=== PATIENT | female | born 1970 | race Caucasian/White ===

== ENCOUNTER 2023-05-06 13:44 | Outpatient (RCR) | payer OTHER, MEDICAID, SELFPAY | END 2023-05-06 17:00 | disposition home or self-care (01) | LOC: HO.WCC 13:44 | PROVIDERS: PCP Internal Medicine; Visit Provider Physician Assistant | DX: Z09 Encounter for follow-up examination after completed treatment for conditions other than malignant neoplasm (principal); E11.610 Type 2 diabetes mellitus with diabetic neuropathic arthropathy; I10 Essential (primary) hypertension; E11.40 Type 2 diabetes mellitus with diabetic neuropathy, unspecified; Z79.4 Long term (current) use of insulin; Z79.84 Long term (current) use of oral hypoglycemic drugs; Z89.412 Acquired absence of left great toe; Z86.31 Personal history of diabetic foot ulcer | CPT/HCPCS: 99212 ==

== ENCOUNTER 2023-07-18 09:20 | Outpatient (RCR) | payer MEDICAID, OTHER, SELFPAY | END 2023-11-11 10:12 | disposition short-term general hospital (02) | LOC: HO.WCC 09:20 | PROVIDERS: PCP Internal Medicine; Visit Provider Physician Assistant | DX: E11.621 Type 2 diabetes mellitus with foot ulcer (principal); L97.522 Non-pressure chronic ulcer of other part of left foot with fat layer exposed; E11.43 Type 2 diabetes mellitus with diabetic autonomic (poly)neuropathy | CPT/HCPCS: 11042 ==

== ENCOUNTER 2023-09-07 22:44 | Emergency (ER) | payer OTHER, MEDICAID, SELFPAY ==
--- NOTE | 2023-09-07 | ECG_ITS ---
Test Reason : AMS Blood Pressure : / mmHG Vent. Rate : 079 BPM Atrial Rate : 079 BPM P-R Int : 150 ms QRS Dur : 090 ms QT Int : 412 ms P-R-T Axes : 060 027 053 degrees QTc Int : 472 ms Normal sinus rhythm Cannot rule out Anterior infarct , age undetermined Abnormal ECG No previous ECGs available Referred By: Generic ED Physician Electronically Signed By:Efren Delgado
--- NOTE | ~2023-09-07 | XR_ITS ---
EXAMINATION: XR CHEST CLINICAL INFORMATION: Altered mental status. COMPARISON: None available. TECHNIQUE: Frontal view of the chest was obtained. FINDINGS: No significant abnormality is noted involving the heart, lungs, mediastinum, bony thorax or soft tissues. XR/XR chest 1V IMPRESSION: Unremarkable examination.
--- NOTE | ~2023-09-07 | CT_ITS ---
EXAMINATION: CT ABDOMEN AND PELVIS WITH CONTRAST CLINICAL INFORMATION: Abdominal pain. COMPARISON: None available. TECHNIQUE: Multidetector volumetric images were obtained from the superior aspect of the liver through the pubic symphysis following administration 85 mL of Omnipaque 350 intravenous contrast. Sagittal and coronal reformatted images were obtained on the technologist's workstation. Oral contrast: No This CT examination was performed using dose optimization techniques as appropriate, variously including the following: *Automated exposure control *Adjustment of mA and/or kV according to patient size (this includes techniques or standardized protocols for targeted exams where dose is matched to indication/reason for exam; i.e. extremities or head) *Use of iterative reconstruction technique DLP: 546 mGy-cm FINDINGS: LUNG BASES: The visualized lung bases are unremarkable. LIVER, GALLBLADDER, AND BILIARY TREE: The liver is normal in size, shape, and attenuation. No focal hepatic lesion or biliary ductal dilatation is present. There has been a prior cholecystectomy. PANCREAS: Unremarkable. SPLEEN: The spleen measures up to 15 cm ADRENAL GLANDS: Unremarkable. KIDNEYS AND URETERS: The kidneys are normal in size, shape, and attenuation. No hydronephrosis, hydroureter, or calculi seen. No perinephric stranding. BLADDER: Unremarkable. GASTROINTESTINAL TRACT: There is retained stool throughout the colon. A gastric band is noted in place. ABDOMINAL WALL: No significant hernia is appreciated. LYMPH NODES: Normal. VASCULAR: Unremarkable. PELVIC VISCERA: Unremarkable. OSSEOUS STRUCTURES: There is moderate L5-S1 disc degenerative change. CT/CT abdomen pelvis w IV con IMPRESSION: 1. No acute abnormality. 2. Retained stool throughout the colon. 3. Status post cholecystectomy. 4. Gastric band in place. 5. Moderate L5-S1 disc degenerative change. Fleischner guidelines were followed.
[2023-09-07 23:01] VITALS: BP 163/79; BP 167/65; PULSE 85; PULSE 90; RESP 25; TEMP 36.4; O2SAT 100; O2SAT 98; BMI 33.1
[2023-09-07 23:53] LABS: Basophils Percent Auto 0.4 % (0-2); Eosinophils Absolute Auto 0.1 X10*3/uL (0.0-0.4); Eosinophils Percent Auto 1.3 % (0-4); Hematocrit 37.7 % (37.0-47.0); Hemoglobin 13.3 g/dl (12.0-16.0); Imm Gran Abs Auto 0.08 X10*3/uL (0.00-0.03); Imm Gran Pct Auto 0.8 % (0.0-0.4); Lymphocytes Percent Auto 8.9 % (20-40); MANUAL DIFF FLAG NO; Mean Corpuscular HGB Conc 35.3 g/dl (31.0-35.0); Mean Corpuscular Hemoglobin 29.7 pg (27.0-33.0); Mean Corpuscular Volume 84.2 fL (80.0-98.0); Mean Platelet Volume 8.9 fL (9.4-12.3); Monocytes Absolute Auto 1.3 X10*3/uL (0.1-1.2); Neutrophils Absolute Auto 8.1 x10*3/uL (2.0-8.3); Neutrophils Percent Auto 76.6 % (45-73); Platelet Count 272 X10*3/uL (160-400); Red Blood Count 4.48 X10*6/uL (4.20-5.50); Red Cell Distribution Width 12.9 % (11.0-16.0); White Blood Count 10.6 X10*3/uL (4.8-10.8)
[2023-09-08 00:16] LABS: Acetaminophen LAB < 3 mcg/mL (<30); Alanine Aminotransferase 36 U/L (0-31); Albumin Level 3.6 g/dL (3.5-5.0); Alkaline Phosphatase 187 U/L (39-117); Anion Gap 16 (12-20); Aspartate Amino Transferase 39 U/L (5-31); Bilirubin Total 0.9 mg/dL (0.0-1.0); Blood Urea Nitrogen 15 mg/dL (9-16); Calcium 9.3 mg/dL (8.4-10.2); Carbon Dioxide 21 mmol/L (22-29); Chloride 100 mmol/L (96-108); Creatinine Clr Calc Pharmacy 74.2; Estimated Glomerular Filt Rate > 60; Ethanol < 10 mg/dL; Glucose Fasting 87 mg/dL (60-99); Potassium 3.2 mmol/L (3.3-5.1); Sodium 134 mmol/L (135-145); Total Protein 7.6 g/dL (6.5-8.0)
[2023-09-08 00:19] LABS: Troponin-I High Sensitivity < 2.7 ng/L (<3.5-17.0)
[2023-09-08 01:02] LABS: Ammonia 26 umol/L (13-55)
[2023-09-08 01:33] VITALS: BP 116/68; PULSE 81; RESP 23; TEMP 36.9; O2SAT 98
--- NOTE | 2023-09-08 01:37 | ED_ITS ---
HPI - General Adult General Chief complaint: Altered Mental Status Stated complaint: AMS,WEAK Time Seen by Provider: 09/07/23 23:37 Source: patient Mode of arrival: EMS History of Present Illness ED Provider: Dr Acevedo [facility] narrative: 53-year-old female with history of diabetes, brought in by EMS and states that her called the ambulance as for the past couple of days she has been feeling unwell with abdominal discomfort, denies any diarrhea or urinary symptoms and has had some mild nausea. Patient states that she has a history of colitis and this feels similar. She is typically followed up at [facility]. Related Data Allergies Allergy/AdvReac Type Severity Reaction Status Date / Time No Known Allergies Allergy Verified 09/07/23 23:11 Review of Systems 2 Review of Systems: Pertinent positives and negatives as stated in HPI [facility] Past Medical History Source: nursing notes reviewed Social History Social History Advance Directives: No Advance Directives Information Provided: No Do you have a plan to hurt others: No Plan Physical Exam ED Vital Signs: Vital Signs - 24 hr 09/07/23 23:01 09/08/23 01:33 Temperature 97.5 F 98.5 F Pulse Rate 85 81 Respiratory Rate 25 H 23 H Blood Pressure 167/65 H 116/68 Pulse Oximetry 100 98 Oxygen Delivery Method Room Air Room Air BMI result Body Mass Index 33.1 VITAL SIGNS: Reviewed. GENERAL: Elevated BMI, Well developed, well nourished, in no acute distress. HEAD: Normocephalic/atraumatic EYES: PERRLA, EOMI EARS: Ext canals without abnormality NOSE: Nares patent bilateral OROPHARYNX: no oral lesions noted, posterior pharynx clear NECK: Supple, no adenopathy LUNGS: Normal breath sounds. No adventitious sounds or accessory muscle use. SpO2<98> CARDIOVASCULAR: Regular rate and rhythm without noted murmurs ABDOMEN: Soft, mid abdominal discomfort without rebound, non-distended with bowel sounds. MUSCULOSKELETAL: No tenderness, deformities, or effusions noted on gross inspection. EXTREMITIES: No cyanosis, clubbing or edema. SKIN: Inspection of the skin reveals no rashes NEUROLOGIC: Alert and oriented x 4. Strength and sensation to light touch were grossly intact x 4. Medications Administered Discontinued Medications Generic Name Dose Route Start Last Admin Trade Name Freq PRN Reason Stop Dose Admin Sodium Chloride 1,000 mls @ 999 mls/hr 09/08/23 01:45 09/08/23 01:47 Ns IV 09/08/23 02:45 999 mls/hr .Q1H1M AMELIA Administration Iohexol 85 ml 09/08/23 02:50 09/08/23 02:51 Iohexol 350 Mg/Ml 100 Ml Infus..Btl IV 09/08/23 02:51 85 ml ONCE ONE Administration Potassium Chloride 60 meq 09/08/23 02:54 09/08/23 03:03 Potassium Chloride Er 20 Meq Tab.Er.Prt PO 09/08/23 02:55 60 meq ONCE ONE Administration Medical Decision Making Medical Decision Making MDM Narrative: 53-year-old female with history and clinical presentation, DDX: Viral illness, colitis, urinary tract infection, lower clinical suspicion for obstruction. I reviewed hematologic indices which are negative for leukocytosis/anemia/thrombocytopenia. Chemistries indices negative for POOJA but there is noted low potassium which will be repleted with 60 mEq orally and otherwise patient has mildly elevated transaminases with an elevated alkaline phosphatase. As patient typically gets followed up at [facility] there are no laboratory studies to compare with and does not have abdominal discomfort to otherwise suggest a choledocholithiasis or cholangitis. High sensitivity troponin is undetectable. Tylenol and alcohol levels are undetectable. Chest x-ray is negative for infiltrate or venous congestion. CT scan negative for acute intra-abdominal abnormalities and urinalysis negative for UTI or hematuria. My interpretation is that patient may be experiencing a viral illness and she is otherwise discharged home with instructions to continue with symptomatic treatment and follow up with her PCP. Differential Diagnosis Differential Diagnoses: The differential diagnosis associated with the presentation includes Please see the discussion above Admission/Observation Consideration of admission/observation: Escalation of care including admission/observation considered Please see the discussion above Lab Data [facility] Lab Attestation statement: I reviewed the patient's lab results. Please see the discussion above 09/07/23 23:50 09/07/23 23:50 Labs: Lab Results 09/07/23 09/08/23 09/08/23 Range/Units 23:50 01:52 04:02 WBC 10.6 (4.8-10.8) X10*3/uL RBC 4.48 (4.20-5.50) X10*6/uL Hgb 13.3 (12.0-16.0) g/dl Hct 37.7 (37.0-47.0) % MCV 84.2 (80.0-98.0) fL MCH 29.7 (27.0-33.0) pg MCHC 35.3 H (31.0-35.0) g/dl RDW 12.9 (11.0-16.0) % Plt Count 272 (160-400) X10*3/uL MPV 8.9 L (9.4-12.3) fL Immature Gran % (Auto) 0.8 H (0.0-0.4) % Neut % (Auto) 76.6 H (45-73) % Lymph % (Auto) 8.9 L (20-40) % Norton % (Auto) 12.0 H (2-11) % Eos % (Auto) 1.3 (0-4) % Baso % (Auto) 0.4 (0-2) % Lymph # (Auto) 1.0 L (1.2-4.9) X10*3/uL Norton # (Auto) 1.3 H (0.1-1.2) X10*3/uL Eos # (Auto) 0.1 (0.0-0.4) X10*3/uL Baso # (Auto) 0.0 (0.0-0.2) X10*3/uL Abs Immat Gran (auto) 0.08 H (0.00-0.03) X10*3/uL Absolute Neuts (auto) 8.1 (2.0-8.3) x10*3/uL Absolute Nucleated RBC 0.000 (0.0-0.012) X10*3/uL Nucleated RBC % (auto) 0.0 (0.0-0.2) /100WBC Sodium 134 L (135-145) mmol/L Potassium 3.2 L (3.3-5.1) mmol/L Chloride 100 (96-108) mmol/L Carbon Dioxide 21 L (22-29) mmol/L Anion Gap 16 (12-20) BUN 15 (9-16) mg/dL Creatinine 0.85 (0.5-1.4) mg/dL Estim Creat Clear Calc 74.2 Estimated GFR > 60 Fasting Glucose 87 (60-99) mg/dL Calcium 9.3 (8.4-10.2) mg/dL Total Bilirubin 0.9 (0.0-1.0) mg/dL AST 39 H (5-31) U/L ALT 36 H (0-31) U/L Alkaline Phosphatase 187 H (39-117) U/L Ammonia 26 (13-55) umol/L Troponin I High Sens < 2.7 (<3.5-17.0) ng/L Total Protein 7.6 (6.5-8.0) g/dL Albumin 3.6 (3.5-5.0) g/dL Urine Color Dark Yellow Urine Appearance Clear Urine pH 6.0 (5.0-9.0) Ur Specific [place] >= 1.030 H (1.005-1.025) Urine Protein 30 (1+) H (Neg-Trace) mg/dL Urine Glucose (UA) 100 H (Negative) mg/dL Urine Ketones Trace (Negative) mg/dL Urine Blood Negative (Negative) Urine Nitrite Negative (Negative) Ur Leukocyte Esterase Trace H (Negative) Acetaminophen < 3 (<30) mcg/mL Ethyl Alcohol < 10 mg/dL COVID-19 (DEIRDRE) Negative (Negative) COVID-19 Clin Com See Note Independent Interpretation I performed an independent interpretation of an: EKG Interpretation: Normal sinus rhythm, HR-79, no STEMI, NJ/QRS/QTC is within normal limits. Radiology Impression Discussion of test interpretation with radiology: I have reviewed the radiologist's reading. Radiologist Impression: Please see the discussion above Chronic Conditions Patient?s care impacted by: Diabetes and Hypertension Critical Care Time Critical Care Time Critical Care Time: Yes Total Critical Care Time: 60 Attestation: I personally attest to this time spent taking care of the patient. Discharge Plan Discharge Clinical Impression: Viral syndrome Patient Disposition: Home, Self-Care Instructions: Viral Syndrome (ED) Additional Instructions: 1. Resume all home medications as prescribed. 2. It is suspected that you may be experiencing a viral illness despite your COVID-19 test being negative. Recommend izzx-[id number] Tylenol/ibuprofen as needed for symptom relief and follow-up with your primary care doctor in the next 1-2 days. Return to the ER for any worsening symptoms. Referrals: Krish Patrick MD [Primary Care Provider] - Print Language: Cypriot
[2023-09-08] MEDS: 0.9 % Sodium Chloride 1,000 ML 999 ML IV (01:47)
[2023-09-08 02:25] LABS: COVID-19 Test Negative (Negative); IDNOW Serial# 6674DD1D
[2023-09-08] MEDS: iohexoL 350 MG/ML 100 ML INFUS..BTL 85 ML IV (02:51)
[2023-09-08] MEDS: Potassium Chloride ER 20 MEQ TAB.ER.PRT 60 MEQ PO (03:03)
[2023-09-08 04:14] LABS: Appearance Urine Clear; Color Urine Dark Yellow; Glucose Urine UA 100 mg/dL (Negative); Leukocyte Esterase Urine Trace (Negative); Nitrite Urine Negative (Negative); Specific Gravity - Urine >= 1.030 (1.005-1.025); UMIC TRIGGER UACC YES; Urine Blood Negative (Negative); Urine Ketones Trace mg/dL (Negative); Urine Protein 30 (1+) mg/dL (Neg-Trace)
[2023-09-08 04:26] LABS: Amphetamine Screen Urine Not Detected (Not Detect); Barbiturates, Urine Not Detected (Not Detect); Benzodiazepines Screen Urine Not Detected (Not Detect); Buprenorphine Scr Not Detected (Not Detect); Cannabinoid Screen Urine POSITIVE (Not Detect); Cocaine Screen Urine Not Detected (Not Detect); Fentanyl, urine Not Detected (Not Detect); Methadone Screen, Urine Not Detected (Not Detect); Opiate Screen Urine Not Detected (Not Detect); Oxycodone Screen Urine Not Detected (Not Detect); Phencyclidine Screen Urine Not Detected (Not Detect)
[2023-09-08 04:36] LABS: Bacteria Urine 1+ (None Seen); Hyaline Casts Urine 0-2 /LPF (0-2); RBC Urine 0-2 /HPF (0-2); UACC Culture Trigger YES
[2023-09-08 04:51] VITALS: BP 114/66; PULSE 78; RESP 20; TEMP 36.9; O2SAT 98
[2023-09-08] MEDS: Ibuprofen 400 MG TABLET PO (04:53)
[2023-09-08] MEDS: Acetaminophen 325 MG TABLET 975 MG PO (04:53)
[2023-09-08 05:15] VITALS: BP 114/66; PULSE 78; RESP 20; TEMP 36.9; O2SAT 98
== END 2023-09-08 07:54 | disposition home or self-care (01) ==
PROVIDERS: Emergency Provider Student in an Organized Health Care Education/Training Program; PCP Internal Medicine
DX: B34.9 Viral infection, unspecified (principal); R41.82 Altered mental status, unspecified; R94.31 Abnormal electrocardiogram [ECG] [EKG]; R11.0 Nausea; Z11.52 Encounter for screening for COVID-19; Z79.899 Other long term (current) drug therapy
CPT/HCPCS: 36415; 71045; 74177; 80053; 80143; 80307; 81001; 82140; 84484; 85025; 87086; 87635; 93005; 96360; 96361; 99285; Q9967

== ENCOUNTER → 2023-09-07 23:34 | Outpatient (BNV) | payer OTHER, MEDICAID, SELFPAY | PROVIDERS: Emergency Provider Student in an Organized Health Care Education/Training Program; PCP Internal Medicine; Visit Provider Internal Medicine Cardiovascular Disease | DX: R94.31 Abnormal electrocardiogram [ECG] [EKG] (principal); R41.82 Altered mental status, unspecified | CPT/HCPCS: 93010 ==

== ENCOUNTER 2024-05-18 13:25 | Outpatient (REF) | payer MEDICAID, SELFPAY ==
[2024-05-18 15:30] LABS: Microalbum/Creatinine Ratio Ur 123.8 ug/mg cr (<30)
--- OUTSIDE RECORDS SUMMARY | 2024-05-18 15:31 | XMS_ITS | Encounter Summary ---
Author Organization [email or web address] Address [address] [place] [address] Care Team Providers Care Investor Name Role Phone Cesar Bonner MD Primary Care Provider [phone] Encounter Details Date Type Department Care Team (Late st Contact Info) Description 11/11/2023 Orders Only [facility] [address] [place] [address] Cesar Bonner MD [address] [facility] [address] [place] [id number] Social History Tobacco Use Types Packs/Day Years Used Date Smoking Tobacco: Never Smokeless Tobacco: Never Housing Stability Answer Date Recorded What is your housing situation today? I have jose mgabe wiggins 10/31/[address] you li ve. Do you have problems with any of the following? None of the above 10/31/2023 Food Insecurity Answer Date Recorded Within the past 12 months, y ou worried that your food would run out before you got money to buy more: Never True 10/31/2023 Within the past 12 months,th e food you bought just didn't last and you didn't have enough money to get more: Never True 02/2024 Transportation Answer Date Recorded In the past 12 months, has l ack of transportation kept you from medical appts, meetings, work or from getting things needed for daily living? No 10/31/2023 Utilities Answer Date Recorded In the past 12 months, has t he electric, gas, oil or water company threatened to shut off services in your home? No 10/31/2023 Comments Unknown Sex and Gender Information Value Date Recorded Sex Assigned at Female 01/18/2022 10:24 AM EDT Legal Sex Female 10:24 AM EDT Gender Identity Female 01/18/2022 10:24 AM EDT Sexual Orientation Straight 01/18/2022 10 :24 AM EDT documented as of this encounter Plan of Treatment Upcoming Encounters Date Type Department Care Team (Late st Contact Info) Description 05/21/2024 10:15 AM EST Nurse Only [facility] [address] [place] [address] 08/15/2024 9:00 AM EDT Office Visit [facility] [address] [place] [address] Cesar Bonner MD [address] [place] [address] documented as of this encounter Visit Diagnoses Not on filedocumented in this encounter Care Teams Investor Relationship Specialty Start Date End Date Cesar Bonner MD [address] [place] [address] PCP - General Internal Medicine 11/08/23 documented as of this encounter
--- OUTSIDE RECORDS SUMMARY | 2024-05-18 15:31 | XMS_ITS | Clinical Summary ---
Author Organization [facility] Address [address] [place] [address] Care Team Providers Care Sales Secretary Name Role Phone Unavailable Primary Care Provider Unavailabl e Source Comments PLEASE NOTE, if this patient is a minor, it may be UNLAWFUL to discuss sensitive information that is contained in these records (such as FAMILY PLANNING, MENTAL HEALTH or SUBSTANCE ABUSE) with the minor patient's parent or other person without the patient's specific authorization.[facility] Immunizations Name Administration Dates Next Due Moderna COVID-19 Vaccine, re d cap blue label, 12+ Primary Series 08/04/2020,07/07/2020 Social History Tobacco Use Types Packs/Day Years Used Date Smoking Tobacco: Never Assessed Social Connections Answer Date Recorded Social Connections and Isolation 0 08/19/2023 Financial Resource Strain Answer Date R ecorded Financial Resource Strain 0 2023 Stress Answer Date Recorded Stress 0 08/19/2023 Physical Activity Answer Date Recorded Physical Activity 0 08/19/2023 Food Insecurity Answer Date Recorded Food 0 08/19/2023 Transportation Needs Answer Date Record ed Transportation 0 08/19/2023 Housing Stability Answer Date Recorded Housing 0 08/19/2023 Safety and Environment Answer Date Hakeem rded Safety 0 08/19/2023 Utilities Answer Date Recorded Utilities 0 08/19/2023 Employment Answer Date Recorded Employment 0 08/19/2023 Comments Unknown Sex and Gender Information Value Date Recorded Sex Assigned at Not on file Legal Sex Female 11:15 AM PDT Gender Identity Not on file Sexual Orientation Not on file Plan of Treatment Health Maintenance Due Date Last Done Comments Diabetes Screening 1968 HPV Screening 1968 Hepatitis C Screening 1968 Lipid Screening 1968 Pap + HPV 1968 Tobacco Screening 1968 HIV Screening 1983 Hypertension Screening (#1) 1986 Imm-Hepatitis B (1 of 3 - 19 + 3-dose series) 1987 Cervical Cancer Screening 1989 Pap Smear 1989 Breast Cancer Screening (Mammogram) 2008 CT Colonography 2013 Colonoscopy 2013 Colorectal Cancer Screening 2013 FIT/gFOBT 2013 Fecal DNA 2013 Flexible Sigmoidoscopy 2013 Imm-DTaP/Tdap/Td (2 - Td or Tdap) 08/31/2017 008 Imm-Zoster, Recombinant (1 of 2) 2018 Bse-TZHOK-23 ( season) 2023 021, 07/07/2020 Imm-Influenza (#1) 2023 01/31/2018, 0 12/03/2014, 02/27/2014, Additional history exists Alcohol and Drug Screen 03/21/2024 Depression Annual Screen 03/21/2024 Cervical Ablation/Cold-Knife Conization Discontinued Cervical Cryotherapy Discontinued Colposcopy Discontinued Endometrial Biopsy Discontinued Excision/Leep Discontinued HPV Genotyping Discontinued Vaginal Pap Discontinued Vulvoscopy Discontinued Insurance [place] MEDICA[place] [id number]
--- OUTSIDE RECORDS SUMMARY | 2024-05-18 15:31 | XMS_ITS | Encounter Summary ---
Author Organization [employer] Address [address] [place] [address] Care Team Providers Care Boat Diesel Motor Mechanic Name Role Phone Cesar Bonner MD Primary Care Provider [phone] Reason for Visit * Reason Onset Date Comments Medication Question 05/04/2024 Med Refill 05/04/2024 Encounter Details Date Type Department Care Team (Late st Contact Info) Description 05/04/[address] [facility] [address] [place] [address] Cesar Bonner MD [address] [facility] [place] [phone] Medication Question; Med Refill Social History Tobacco Use Types Packs/Day Years Used Date Smoking Tobacco: Never Smokeless Tobacco: Never Housing Stability Answer Date Recorded What is your housing situation today? I have jose m rosalie 10/31/[address] you li [...] off services in your home? No 10/31/2023 Internet Access Answer Date Recorded Internet Access Q1 Yes 11/21/2023 Internet Access Q2 Not on file 11/21/2023 Comments Unknown Sex and Gender Information Value Date Recorded Sex Assigned at Female 01/18/2022 10:24 AM EDT Legal Sex Female 10:24 AM EDT Gender Identity Female 01/18/2022 10:24 AM EDT Sexual Orientation Straight 01/18/2022 10 :24 AM EDT documented as of this encounter Miscellaneous Notes * Telephone Encounter - Keena Skaggs RN - 05/08/2024 9:44 AM EST TC to patient. No answer. Left message to return call to office. * Telephone Encounter - Chad Fisher - 05/04/2024 3:21 PM EST Tc from pt requesting Med Lantus SoloStar 100 UNIT/ML pen and insulin lispro (HumaLOG Asim KwikPen) 100 UNIT/ML pen. Pt states those medications used to be Prescribed by [facility] but Pt no longer sees her. So she was wondering if it was possible for PCP to Prescribe it for her. She [id number] [place] Pt only has enough for about 2 days Contact pt at [phone] documented in this encounter Plan of Treatment Upcoming Encounters Date Type Department Care Team ([facility] Contact Info) Description 05/21/2024 10:15 AM EST Nurse Only [facility] [address] [place] [address] 08/15/2024 9:00 AM EDT Office Visit [facility] [address] [place] [address] Cesar Bonner MD [address] [place] [address] documented as of this encounter Visit Diagnoses Not on filedocumented in this encounter Care Teams Boat Diesel Motor Mechanic Relationship Specialty Start Date End Date Cesar Bonner MD [address] [facility] [place] [address] PCP - General Internal Medicine 11/08/23 documented as of this encounter
--- OUTSIDE RECORDS SUMMARY | 2024-05-18 15:31 | XMS_ITS | Clinical Summary ---
Author Organization [facility] Address [address] [place] [address] 7 [place] [address] Care Team Providers Care Electrician Station Assistant Name Role Phone Cesar Bonner MD Primary Care Provider [phone]- [phone] Allergies Active Allergy Reactions Criticality Noted Date Comments Clindamycin 12/05/2013 Edetic Acid 10/30/2020 Erythromycin 06/25/2013 Other reaction(s): Nausea/Vomiting Latex 06/25/2013 Other reaction(s): Rash Metformin 06/25/2013 Other reaction(s): Nausea / Vomiting Medications * This document contains information received from the source organization and may not represent a complete record from that organization. acetaminophen (Tylenol) 500 MG tablet TAKE 2 TABLETS BY MOUTH THREE TIMES DAILY NEEDED FOR PAINALTERNATE WITH IBUPROFEN Active bisacodyl (Dulcolax) 5 MG EC tablet TAKE 4 TABLETS BY MOUTH ONCE Active Blood Glucose Monitoring Suppl (ONE TOUCH ULTRA 2) w/Device kit USE DIRECTED TO TEST BLOOD SUGAR FOUR TIMES A DAY 024 Active buPROPion XL (Wellbutrin XL) 150 MG 24 hr tablet TAKE 1 TABLET BY MOUTH EVERY 24 HOURS TOTAL 450 MG Active buPROPion XL (Wellbutrin XL) 300 MG 24 hr tablet TAKE 1 TABLET BY MOUTH EVERY 24 HOURS TOTAL 450 MG 024 Active buPROPion (Wellbutrin) 100 MG tablet Take 100 mg by mouth 2 times daily. Active Calcium Carb-Cholecalci ferol 600-20 MG-MCG tablet Take 1 tablet by mouth Once per day. Active fluticasone (Flonase) 50 MCG/ACT nasal spray SHAKE LIQUID AND USE 1 SPRAY IN EACH NOSTRIL TWICE DAILY Active glucagon 1 MG injection INJECT 1 MG SUBCUTANEOUSLY ONCE NEEDED DIRECTED Active glyBURIDE (Diabeta) 5 MG tablet Take 2 tablets by mouth 2 times daily. Active DULoxetine (Cymbalta) [address] capsuleIndicati ons:Severe episode of recurrent major depressive disorder, without psychotic features (CMS/HCC) Take 1 capsule (60 mg) by mouth Once per day. Do not crush or chew. 30 capsule 024 2024 Active lisinopril 10 MG tabletIndicatio ns:Primary hypertension Take 1 tablet (10 mg) by mouth Once per day. 90 tablet 3 2024 Active loratadine (Claritin) 10 MG tabletIndicatio ns:Seasonal allergies Take 1 tablet (10 mg) by mouth Once per day. 30 tablet 2024 Active fluticasone (Flonase) 50 MCG/ACT nasal sprayIndication s:Seasonal allergies Administer 1-2 sprays into each nostril Once per day. Shake gently. Before first use, prime pump. After use, clean tip and replace cap. 16 g 2024 Active Insulin Lispro (HumaLOG) 100 UNIT/ML solutionIndicat ions:Type 2 diabetes mellitus with hyperglycemia, with long-term current use of insulin ([facility]) Inject 14 Units under the skin 3 times daily. 4 to 14 units to inject subcu 3 times a day 15 minutes before meal as per the sliding scale 20 mL Active insulin lispro (HumaLOG Asim KwikPen) 100 UNIT/ML penIndications: Type 2 diabetes mellitus with hyperglycemia, with long-term current use of insulin ([facility]/HCC) Inject 14 Units under the skin with breakfast, with lunch, and with evening meal. 5 mL 2024 Active insulin lispro (HumaLOG KWIKPEN) 100 UNIT/ML injectionIndica tions:Type 2 diabetes mellitus with hyperglycemia, with long-term current use of insulin (CMS/HCC) Inject 14 Units under the skin with breakfast, with lunch, and with evening meal. 5 mL Active Diclofenac Sodium 1 % gelIndications: Neck pain To apply to the affected area 3 times a day 100 g Active cetirizine (ZyrTEC) 10 MG tablet Take 1 tablet (10 mg) by mouth Once per day. 30 tablet Active simvastatin (Zocor) 40 MG tablet Take 1 tablet (40 mg) by mouth at bedtime. 30 tablet Active albuterol 108 (90 Base) MCG/ACT inhalerIndicati ons:Acute cough,Influenza B Inhale 2 puffs every 4 (four) hours if needed for wheezing. 18 g 025 2025 Active Continuous Glucose Sensor (FreeStyle Hina 3 Plus Sensor) misc Active DULoxetine (Cymbalta) [address] capsule Active OneTouch Ultra test strip USE DIRECTED TO TEST BLOOD SUGAR FOUR TIMES A DAY Active Droplet Pen [employer] [facility] 31G X 5 MM misc USE DIRECTED FOUR TIMES DAILY Active Lancets (ZignalsTouch Delica Plus [id number]) misc USE DIRECTED TO TEST BLOOD SUGAR FOUR TIMES A DAY Active Ritalin LA 30 MG 24 hr capsule Take 30 mg by mouth. Active omeprazole (PriLOSEC) [address] capsule Take 20 mg by mouth 2 times daily. Active traZODone (Desyrel) 50 MG tablet Take 50 mg by mouth at bedtime. Active Lantus SoloStar 100 UNIT/ML penIndications: Type 2 diabetes mellitus with hyperglycemia, with long-term current use of insulin ([facility]) Inject 60 Units under the skin 2 times daily. 3 mL Active lidocaine (Xylocaine) 5 % ointmentIndicat ions:Charcot foot due to diabetes mellitus ([facility]) Apply topically if needed for mild pain. 50 g 1 025 2025 Active DULoxetine (Cymbalta) [address] capsule Take 20 mg by mouth Once per day. 2024 Discontinued( ed list cleanup (will not trigger notification to Pharmacy)) insulin glargine (Lantus) 100 UNIT/ML injectionIndica tions:Type 2 diabetes mellitus with hyperglycemia, with long-term current use of insulin ([facility]) Inject 120 Units under the skin at bedtime. 10 mL 12 024 2024 Discontinued(M ed list cleanup (will not trigger notification to Pharmacy)) Insulin Syringe 31G X 5/16 0.5 ML miscIndications :Type 2 diabetes mellitus with hyperglycemia, with long-term current use of insulin ([facility]) To use 4 times a day 120 each 11 024 2024 Discontinued(M ed list cleanup (will not trigger notification to Pharmacy)) dextromethorpha n-guaiFENesin (Tussin DM) 10-100 MG/5ML liquidIndicatio ns:Acute cough,Influenza B Take 5 mL by mouth every 4 (four) hours if needed for cough for up to 10 days. 180 mL 025 2024 oseltamivir (Tamiflu) 75 MG capsuleIndicati ons:Acute cough,Influenza B Take 1 capsule (75 mg) by mouth 2 times daily for 5 days. 10 capsule 025 2024 Lantus SoloStar 100 UNIT/ML pen ADMINISTER 60 UNITS UNDER THE SKIN TWICE DAILY 2024 Discontinued(R eorder (will not trigger notification to Pharmacy)) Active Problems Problem Noted Date Diagnosed Date ADHD (attention deficit hype ractivity disorder), inattentive type 11/08/2023 Allergic rhinitis 11/08/2023 Charcot foot due to diabetes mellitus 11/08/2023 Constipation 11/08/2023 Current use of insulin 11/08/2023 ILYA (generalized anxiety disorder) 11/08/2023 GERD (gastroesophageal reflux disease) 4 Hepatic steatosis 11/08/2023 Hyperglycemia due to diabetes mellitus 4 Hyperlipemia 11/08/2023 Major depressive disorder, recurrent episode, se lalitha 11/08/2023 History of artificial joint 06/25/2013 Hypertension 06/25/2013 Type 2 diabetes mellitus 06/25/2013 Encounters * This document contains information received from the source organization and may not represent a complete record from that organization. Date Type Department Care Team Description 05/18/2024 Travel 05/14/2024 10:45 AM EST Office Visit [facility] [address] [place] [address] Cesar Bonner MD Primary hypertension (Primary Dx); Type 2 diabetes mellitus with hyperglycemia, with long-term current use of insulin ([facility]); Acute cough; Influenza B; Charcot foot due to diabetes mellitus ([facility]); Severe episode of recurrent major depressive disorder, without psychotic features ([facility]) 05/14/2024 Telephone [facility] [address] [place] [address] [place]lejas, [facility] Appointment 05/14/2024 Travel 05/11/2024 Telephone [facility] [address] [place] [address] Cesar Bonner MD CHART PREP 05/11/2024 Telephone [facility] [address] [place] [address] Keena Skaggs, RN 05/09/2024 Orders Only [facility] [address] [place] [address] Cesar Bonner MD Type 2 diabetes mellitus with hyperglycemia, with long-term current use of insulin ([facility]) (Primary Dx) 05/09/2024 Telephone [facility] [address] [place] [address] Keena Skaggs, RN Med Refill (Lantus Solostar) 05/04/2024 Telephone [facility] [address] [place] [phone] Cesar Bonner MD Medication Question; Med Refill 04/30/2024 Patient Outreach [facility] [address] [place] [address] Cesar Bonner MD Pre-visit Planning (Pre visit planning LVM ) 04/20/2024 Orders Only [facility] [address] [place] [address] Cesar Bonner MD Hyperglycemia due to diabetes mellitus ([facility]) (Primary Dx) 04/20/2024 Telephone [facility] [address] [place] [address] Emmanuelle Belcher, PharmD 04/17/2024 11:30 AM EST Office Visit [facility] [address] [place] [address] Cesar Bonner MD Acute cough (Primary Dx); Influenza B; Type 2 diabetes mellitus with hyperglycemia, with long-term current use of insulin ([facility]) 04/17/2024 Travel 04/17/2024 Telephone [facility] [address] [place] [address] Cesar Bonner MD Nurse Triage 04/16/2024 Orders Only [facility] [address] [place] [address] Daniel Valencia MD 04/04/2024 Orders Only [facility] [address] [place] [address] Cesar Bonner MD 04/03/2024 Refill [facility] [address] [place] [address] Cesar Bonner MD Charcot foot due to diabetes mellitus ([facility]) (Primary Dx) 03/30/2024 Refill [facility] [address] [place] [address] Cesar Bonner MD 03/30/2024 Travel 03/30/2024 Telephone [facility] [address] [place] [address] Cesar Bonner MD Med Refill from Last 3 Months Immunizations Name Administration Dates Next Due Influenza Injectable Quadriv alant Preservative Free IIV4 MDCK 01/31/2018 Influenza injectable quadriv alent preservative free 02/02/2022 Influenza, IIV3, injectable 02/21/2023,1 05/11/2020,01/31/2018,12/03,02/27/2014,11/22/2012,01/07/2012 ,12/17/2010,12/30/2009,12/22/2008,11/19 Influenza, seasonal, injecta ble, preservative free 12/29/2023 Novel [id number], preservative-free 02/04/2009 Pfizer Covid-19 Vaccine 12+ 12/29/2023 Pneumococcal Conjugate PCV 13 12/29/2023 Pneumococcal Polysaccharide PPSV23 01/07/2012 Tdap 04/29/2021,09/01/2007 Family History Medical History Relation Name Comments Hypertension Maternal Grandmother Breast cancer Mother Diabetes Mother Hypertension Mother Relation Name Status Comments Maternal Grandmother Mother Social History Tobacco Use Types Packs/Day Years Used Date Smoking Tobacco: Never Smokeless Tobacco: Never Tobacco Cessation:Counseling Given: No Depression Answer Date Recorded Patient Health Questionnaire-9 Score 25 05/14/2024 Patient Health Questionnaire-9 Score 25 05/14/2024 Last PHQ-9: Questionnaire Data Not on file 0 05/14/2024 Housing Stability Answer Date Recorded What is your housing situation today? I have housing today, but I am worried about losing housing in the future 05/14/[address] you li ve. Do you have problems with any of the following? Mold;No or not working smoke detectors;Water leaks 05/14/2024 Food Insecurity Answer Date Recorded Within the past 12 months, y ou worried that your food would run out before you got money to buy more: Sometimes True 2024 Within the past 12 months,th e food you bought just didn't last and you didn't have enough money to get more: Sometimes True 05/14/2024 Transportation Answer Date Recorded In the past 12 months, has l ack of transportation kept you from medical appts, meetings, work or from getting things needed for daily living? Yes, it has kept me from medical appointments or getting medications. 05/14/2024 Utilities Answer Date Recorded In the past 12 months, has t he electric, gas, oil or water company threatened to shut off services in your home? No 10/31/2023 Depression Answer Date Recorded Patient Health Questionnaire-2 Score 6 05/14/2024 Internet Access Answer Date Recorded Internet Access Q1 Yes 11/21/2023 Internet Access Q2 Not on file 11/21/2023 Comments Unknown Sex and Gender Information Value Date Recorded Sex Assigned at Female 01/18/2022 10:24 AM EDT Legal Sex Female 10:24 AM EDT Gender Identity Female 01/18/2022 10:24 AM EDT Sexual Orientation Straight 01/18/2022 10 :24 AM EDT Last Filed Vital Signs Vital Sign Reading Time Taken Comments Blood Pressure 129/77 05/14/2024 10:41 AM EST Pulse 102 05/14/2024 10:41 AM EST Temperature 36.7 ??C (98.1 ??F) 05/14/2024 10:[address] Respiratory Rate 18 05/14/2024 10:41 AM EST Oxygen Saturation 99% 05/14/2024 10:41 AM EST Inhaled Oxygen Concentration - - Weight 74.9 kg (165 lb 3.2 oz) 05/14/2024 10:41 AM EST Height 157.5 cm (5' 2 ) 05/14/2024 10:41 AM EST Body Mass Index 30.22 05/14/2024 10:41 AM EST Plan of Treatment Upcoming Encounters Date Type Department Care Team (Late st Contact Info) Description 05/21/2024 10:15 AM EST Nurse Only [facility] [address] [place] [address] 08/15/2024 9:00 AM EDT Office Visit [facility] [address] [place] [address] Cesar Bonner MD [address] [place] [address] Health Maintenance Due Date Last Done Comments CT Colonography 1968 FIT DNA/Cologuard 1968 FIT 1968 FOBT 1968 HIV Screening 1968 Lipid Panel 1968 Sigmoidoscopy 1968 Diabetes: Foot Exam 1978 Eye Exam 1978 Hepatitis C Screening 1986 Diabetes: Urine Protein Screening 1987 Hepatitis A Vaccines (1 of 2 - Risk 2-dose series) 1987 Hepatitis B Vaccines (1 of 3 - 19+ 3-dose series) 1987 Mammogram 2008 Dental X-Ray: Full Mouth 12/15/2016 12/14/2013 Dental Oral Exam 12/21/2017 06/20/2017, 12/14/2013 Zoster Vaccines (1 of 2) 2018 Dental Prophylaxis 06/16/2020 12/17/2019, 06/20/2017 Dental X-Ray: Bitewings 06/20/2022 06/19/2021, 12/14 Diabetes: Hemoglobin A1C 08/11/2024 05/14/2024, 08/2 Depression Monitoring (PHQ-9) 11/11/2024 05/14/2024, 05/14/2024 Alcohol/Substance Use Screening 05/14/2025 05/14/2024 Depression Screening 05/14/2025 05/14/2024, 05/14/19 25 SDOH Screening 05/14/2025 05/14/2024 Tobacco Screening 05/14/2025 05/14/2024 Colonoscopy 10/20/2025 10/20/2022, 10/20/2022 Colorectal Cancer Screening 10/20/2025 Cervical Cancer Screening 01/06/2028 HPV/Cotest 01/06/2028 Pap Smear 01/06/2028 01/05/2023 Pneumococcal Vaccine: 50+ Years (3 of 3 - PCV20 or PCV21) 12/28/2028 12/29/2023, 01/07/2012 DTaP/Tdap/Td Vaccines (3 - Td or Tdap) 04/29/2031 04/29/2021, 09/01/2007 RSV Patients and Patients Aged 60 years or older (1 - 1-dose 75+ series) 2043 COVID-19 Vaccine Completed 12/29/2023, , 04/16/2021, Additional history exists Influenza Vaccine Completed 12/29/2023, , 02/02/2022, Additional history exists HIB Vaccines Aged Out No longer eligi ble based on patient's age to complete this topic HPV Vaccines Aged Out No longer eligi ble based on patient's age to complete this topic IPV Vaccines Aged Out No longer eligi ble based on patient's age to complete this topic Meningococcal Vaccine Aged Out No alecia erinn eligible based on patient's age to complete this topic RSV under 20 months Aged Out No longe r eligible based on patient's age to complete this topic Rotavirus Vaccines Aged Out No longer eligible based on patient's age to complete this topic Procedures Procedure Name Priority Date/Time Associated Diagnosis Comments POCT GLYCATED HEMOGLOBIN, TOTAL Routine 05/14/2024 10:44 AM EST Type 2 diabetes mellitus with hyperglycemia, with long-term current use of insulin ([facility]) POCT GLUCOSE Routine 05/14/2024 10:43 AM EST Type 2 diabetes mellitus with hyperglycemia, with long-term current use of insulin ([facility]) POCT RAPID STREP A Routine 04/17/2024 12 :21 PM EST Acute cough POCT INFLUENZA B Routine 04/17/2024 12:2 1 PM EST Acute cough POCT INFLUENZA A Routine 04/17/2024 12:2 1 PM EST Acute cough POCT RAPID COVID ANTIGEN Routine 04/17/2024 12:20 PM EST Acute cough HM PAP/HPV Routine 01/05/2023 2:04 PM EDT HM COLONOSCOPY Routine 10/20/2022 9:00 AM EDT BITEWING - SINGLE RADIOGRAPHIC IMAGE Routine 06/19/2021 12:00 AM EDT PROPHYLAXIS - ADULT Routine 12/17/2019 1 2:00 AM EDT PERIODIC ORAL EVALUATION - ESTABLISHED PATIENT Routine 06/20/2017 12:00 AM EDT INTRAORAL - COMPLETE SERIES OF RADIOGRAPHIC IMAGES Routine 12/14/2013 12:00 AM EDT from Last 3 Months or Most Recently Relevant to Health Maintenance Results * (ABNORMAL) POCT A1C (05/14/2024 10:44 AM EST) Hemoglobin A1C 13.4(A) 4.0 - 6.0 % QC Media Lot # Comment:[id number] Lot# Expiration Date Comment:01/05/2026 Blood 05/14/2024 10:4 4 AM EST Cesar Bonner MD POINT OF CARE TEST ENTER/ED IT ORDERABLES Final Result * (ABNORMAL) POCT glucose manually resulted (05/14/2024 10:43 AM EST) [facility] Glucose Blood, POC 429(A) 60 - 200 mg/dL QC Media Lot # Comment:[id number] Lot# Expiration Date Comment:06/26/2024 Blood Capillary blood specimen / Unknown 05/14/2024 10:43 AM EST Cesar Bonner MD POINT OF CARE TEST ENTER/ED IT ORDERABLES Final Result * (ABNORMAL) POCT Rapid Influenza B OSOM (04/17/2024 12:21 PM EST) [facility] Rapid Influenza B Ag Positive( A) Negative, Indeterminate QC Media Lot # [id number] Lot# Expiration Date , Swab 04/17/2024 12:2 1 PM EST Cesar Bonner MD POINT OF CARE TEST ENTER/ED IT ORDERABLES Final Result * POCT Rapid Influenza A OSOM (04/17/2024 12:21 PM EST) [facility] Rapid Influenza A Ag Negative Negative, Indeterminate QC Media Lot # [id number] Lot# Expiration Date ,025 Swab Nasopharyngeal structure / Unknown 04/17/2024 12:21 PM EST Cesar Bonner MD POINT OF CARE TEST ENTER/ED IT ORDERABLES Final Result * POCT Rapid Strep A OSOM (04/17/2024 12:21 PM EST) [facility] Rapid Strep A Screen Negative Negative, None Detected QC Media Lot # [id number] Lot# Expiration Date , Swab 04/17/2024 12:2 1 PM EST Cesar Bonner MD POINT OF CARE TEST ENTER/ED IT ORDERABLES Final Result * POCT Rapid Covid-19 BinaxNOW (04/17/2024 12:20 PM EST) Rapid COVID Ag Negative QC Media Lot # [id number] Lot# Expiration Date [id number] Swab 04/17/2024 12:2 0 PM EST Cesar Bonner MD POINT OF CARE TEST ENTER/ED IT ORDERABLES Final Result * HM PAP/HPV (01/05/2023 2:04 PM EDT) Historical Provider HEALTH MAINTENANCE Final Result * Hm Colonoscopy (10/20/2022 9:00 AM EDT) Historical Provider HEALTH MAINTENANCE Final Result from Last 3 Months or Most Recently Relevant to Health Maintenance Insurance [facility] MEDICAID STAND ADULT Care Teams Electrician Station Assistant Relationship Specialty Start Date End Date Cesar Bonner MD [address] [place] [address] MARSHA Cheung [address] PCP - General Internal Medicine 11/08/23
--- OUTSIDE RECORDS SUMMARY | 2024-05-18 15:31 | XMS_ITS | Encounter Summary ---
Author Organization [employer] [facility] Address [address] [facility] 7 [place] [address] Care Team Providers Care Air Table Operator Name Role Phone Cesar Bonner MD Primary Care Provider [phone] Reason for Visit * Reason Onset Date Comments Med Change Request 12/09/2023 Encounter Details Date Type Department Care Team (Late st Contact Info) Description 12/09/2023 Telephone [facility] [address] [place] [address] Cesar oBnner MD [address] [facility] [facility] [address] [place] [phone] Med Change Request Social History Tobacco Use Types Packs/Day Years [...] encounter Miscellaneous Notes * Telephone Encounter - Mick Jackson - 12/09/2023 10:30 AM EDT Tc from patient calling in regards to the Insulin Lispro (HumaLOG) 100 UNIT/ML solution states it was suppose to be a pen injector and would like it to be changed back documented in this encounter Plan of Treatment Upcoming Encounters Date Type Department Care Team (Late st Contact Info) Description 05/21/2024 10:15 AM EST Nurse Only [facility] [address] [place] [address] 08/15/2024 9:00 AM EDT Office Visit [facility] [address] [place] [address] Cesar Bonner MD [address] [place] [address] documented as of this encounter Visit Diagnoses Not on filedocumented in this encounter Care Teams Air Table Operator Relationship Specialty Start Date End Date Cesar Bonner MD [address] [place] [address] PCP - General Internal Medicine 11/08/23 documented as of this encounter
--- OUTSIDE RECORDS SUMMARY | 2024-05-18 15:31 | XMS_ITS | Encounter Summary ---
Author Organization [employer] Address [address] [facility] [address] [place] [address] Care Team Providers Care Disaster Or Damage Control Specialist Name Role Phone Cesar Bonner MD Primary Care Provider [phone] Encounter Details Date Type Department Care Team (Latest Contact Info) Description 05/18/2024 Travel Social History Tobacco Use Types Packs/Day Years Used Date Smoking Tobacco: Never Smokeless Tobacco: Never Depression Answer Date Recorded Patient Health Questionnaire-9 [...] Description 05/21/2024 10:15 AM EST Nurse Only [facility] [address] [place] [address] 08/15/2024 9:00 AM EDT Office Visit [facility] [address] [place] [address] Cesar Bonner MD [address] [place] [address] documented as of this encounter Visit Diagnoses Not on filedocumented in this encounter Additional Health Concerns Assessment Noted Time PHQ-9 Depression Total Score: 25 025 10:52 AM EST documented as of this encounter Care Teams Disaster Or Damage Control Specialist Relationship Specialty Start Date End Date Cesar Bonner MD [address] [place] [address] PCP - General Internal Medicine 11/08/23 documented as of this encounter
--- OUTSIDE RECORDS SUMMARY | 2024-05-18 15:31 | XMS_ITS | Encounter Summary ---
Author Organization [employer] Address [address] [place] [address] 7 [place] [address] Care Team Providers Care Safety Grooving Machine Operator Name Role Phone Cesar Bonner MD Primary Care Provider [phone] Reason for Visit * Reason Onset Date Comments CHART PREP 05/11/2024 Encounter Details Date Type Department Care Team ([facility] st Contact Info) Description 05/11/2024 Telephone [facility] [address] [place] [address] Cesar Bonner MD [address] [place], [place] [id number] CHART PREP Social History Tobacco Use Types Packs/Day Years [...] encounter Miscellaneous Notes * Telephone Encounter - Eleni Cleveland [place] - 05/11/2024 1:55 PM EST Chart Prep Labs: not applicable Images: not applicable Vaccines due: yes Referrals: complete Screenings: eye exam Overdue care gaps: Sbirt, SDOH, PHQ-9 documented in this encounter Plan of Treatment Upcoming Encounters Date Type Department Care Team (Late st Contact Info) Description 05/21/2024 10:15 AM EST Nurse Only [facility] [address] [place] [address] 08/15/2024 9:00 AM EDT Office Visit [facility] [address] [place] [address] Cesar Bonner MD [address] [place] [address] documented as of this encounter Visit Diagnoses Not on filedocumented in this encounter Care Teams Safety Grooving Machine Operator Relationship Specialty Start Date End Date Cesar Bonner MD [address] [place] [address] PCP - General Internal Medicine 11/08/23 documented as of this encounter
--- OUTSIDE RECORDS SUMMARY | 2024-05-18 15:31 | XMS_ITS | Encounter Summary ---
Author Organization [employer] Address [address] [place] [address] Care Team Providers Care Trader Name Role Phone Cesar Bonner MD Primary Care Provider [phone] Encounter Details Date Type Department Care Team ([facility] st Contact Info) Description 05/11/2024 Telephone [facility] MED & PEDS [address] [place] [address] Keena Skaggs, RN Social History Tobacco Use Types Packs/Day Years [...] Telephone Encounter - Keena Skaggs RN - 05/11/2024 12:26 PM EST Tc to patient to let her know that medication (Lantus Solosta) was sent to pharmacy. Left detailed that medication had been sent to her pharmacy along with refills. documented in this encounter Plan of Treatment Upcoming Encounters Date Type Department Care Team (Late st Contact Info) Description 05/21/2024 10:15 AM EST Nurse Only [facility] MED & PEDS [address] [place] [address] 08/15/2024 9:00 AM EDT Office Visit [facility] MED [facility] PEDS [address] [place] [address] Cesar Bonner MD [address] [place] [address] documented as of this encounter Visit Diagnoses Not on filedocumented in this encounter Care Teams Trader Relationship Specialty Start Date End Date Cesar Bonner MD [address] [place] [address] PCP - General Internal Medicine 11/08/23 documented as of this encounter
--- OUTSIDE RECORDS SUMMARY | 2024-05-18 15:31 | XMS_ITS | Encounter Summary ---
Author Organization [employer] Address [address] 7 [place] [address] Care Team Providers Care Technical Support Professional Name Role Phone Cesar Bonner MD Primary Care Provider [phone] Reason for Visit * Reason Comments Pre-visit Planning Pre visit planning L VM Encounter Details Date Type Department Care Team (Late st Contact Info) Description 04/30/2024 Patient Outreach [facility] [address] [place] [address] Cesar Bonner MD [address] [place], [place] [phone] Pre-visit Planning (Pre visit planning LVM ) Social History Tobacco Use Types Packs/Day Years [...] AM EDT documented as of this encounter Progress Notes * Ivelisse Wilkins - 04/30/2024 3:42 PM EST CC Ivelisse Liriano placed outbound call to patient to complete pre-visit planning. No answer at this time.Patient name and were not confirmed. CC left voicemail requesting return call. Direct contact information provided. documented in this encounter Plan of Treatment Upcoming Encounters Date Type Department Care Team ([facility] st Contact Info) Description 05/21/2024 10:15 AM EST Nurse Only [facility] MED & PEDS [address] [place] [address] 08/15/2024 9:00 AM EDT Office Visit [facility] MED & PEDS [address] [place] [address] Cesar Bonner MD [address] [place] [address] documented as of this encounter Visit Diagnoses Not on filedocumented in this encounter Care Teams Technical Support Professional Relationship Specialty Start Date End Date Cesar Bonner MD [address] [place] [address] PCP - General Internal Medicine 11/08/23 documented as of this encounter
--- OUTSIDE RECORDS SUMMARY | 2024-05-18 15:31 | XMS_ITS | Encounter Summary ---
Author Organization [employer] Address [address] [place] [address] 7 [place] [address] Care Team Providers Care Middle [employer] Music Teacher Name Role Phone Cesar Bonner MD Primary Care Provider [phone] Reason for Visit * Reason Onset Date Comments Appointment 05/14/2024 Encounter Details Date Type Department Care Team ([facility] st Contact Info) Description 05/14/2024 Telephone [facility] CHC MED & PEDS [address] [place] [address] Lubna Callejas, CN [address] [place] [address] Appointment Social History Tobacco Use Types Packs/Day Years [...] encounter Miscellaneous Notes * Telephone Encounter - Omar Virgen - 05/14/2024 3:30 PM EST Pt came in stating she would like to f/u with gyno last pap pt remembers was about 2-3 years ago states it wasn't abnormal. documented in this encounter Plan of Treatment Upcoming Encounters Date Type Department Care Team ([facility] st Contact Info) Description 05/21/2024 10:15 AM EST Nurse Only [facility] MED & PEDS [address] [place] [address] 08/15/2024 9:00 AM EDT Office Visit [facility] MED & PEDS [address] [place] [address] Cesar Bonner MD [address] [place] [address] documented as of this encounter Visit Diagnoses Not on filedocumented in this encounter Additional Health Concerns Assessment Noted Time PHQ-9 Depression Total Score: 25 025 10:52 AM EST documented as of this encounter Care Teams Middle [employer] Music Teacher Relationship Specialty Start Date End Date Cesar Bonner MD [address] [place] [address] PCP - General Internal Medicine 11/08/23 documented as of this encounter
--- OUTSIDE RECORDS SUMMARY | 2024-05-18 15:31 | XMS_ITS | Data Portability ---
Author Organization [place] - [facility] Address [address] [place] [address] Assessment No assessment recorded. Plan of Treatment Reminders Order Date Submit Date Provider Last Modified By Organization Details Last Modified Time Details Appointments None record ed. Lab None record ed. Referral None record ed. Procedures None record ed. Surgeries None record ed. Imaging None record ed. Medication Orders None record ed. Patient TargetsNo targets recorded. Patient InstructionsNo instructions recorded. Reason for Referral None Reported. Results Created Date Observation Date Name Description Value Unit Range Abnormal Flag Note LastModifiedBy Organization Detail LastModifiedTime 11/19/19 24 09/02/2021 imagi ng/di agnos tic resul t No observ ation record ed. [email or web address] Not Available 10/21 05:49:28 11/19/19 24 11/17/2020 imagi ng/di agnos tic resul t No observ ation record ed. [email or web address] Not Available 10/21 05:49:31 11/19/19 24 10/29/2020 imagi ng/di agnos tic resul t No observ ation record ed. [email or web address] Not Available 10/21 05:49:37 Result Notes None recorded. Problems Name Problem SNOMED Code Status Onset Date Resolution Date Notes Provider Name and Address Organization Details Recorded Time No complaints [id number] Active Status : 'A'; Not Available [facility] 09:12:16 Problem Notes None recorded. Procedures Surgical History None recorded. Imaging Results Imaging Date Name Status LastModified by Organ atformerly [facility] Details LastModified Time 09/02/2021 imaging/diag nostic result completed Information not available 11/19/2023 05:49:28 11/17/2020 imaging/diag nostic result completed Information not available 11/19/2023 05:49:31 10/29/2020 imaging/diag nostic result completed Information not available 11/19/2023 05:49:37 Procedure Notes None recorded. Medical Equipment None Reported. Allergies Allergen ID Allergen Name Allergen Category Reaction Reaction Severity Criticality Documentation Date Start Date Code Code System Note Provider Name and Address Organization Details Recorded Time 64895 erythromy rafael medicatio n Not available Not available Not available 05/23/20232001 4053 RxNorm Aller gyRea ction : 'Skin React ion, SWELL ING'; Not Available [facility] 4 11:09:37 93856 metformin hydrochlo ride medicatio n Not available Not available Not available 05/23/20232017 35558 3 RxNorm Not Available [facility] 4 11:09:37 10062 latex environme nt,medica tion Not available Not available Not available 05/23/20232020 74432 91 RxNorm Not Available [facility] 4 11:09:37 Medications Name Sig Start Date Stop Date Status Note LastModified by Organization Details LastModified Time trazodone 50 mg tablet TAKE 1 TABLET BY MOUTH DAILY AT BEDTIME active Not Available Not Available N ot Available cetirizine 10 mg tablet TAKE 1 TABLET BY MOUTH EVERY DAY active Not Available Not Available No t Available glyburide 5 mg tablet TAKE 2 TABLETS BY MOUTH TWICE DAILY active Not Available Not Available No t Available ibuprofen 800 mg tablet active Not Available Not Available Not Available fluconazole 150 mg tablet TAKE 1 TABLET BY MOUTH 1 TIME REPEAT DOSE IF STILL HAVING SYMPTOMS IN 72 HOURS active Not Available Not Available No t Available sulfamethoxa zole 800 mg-trimethop rim 160 mg tablet TAKE 1 TABLET BY MOUTH EVERY 12 HOURS FOR 7 DAYS active Not Available Not Available N ot Available omeprazole 40 mg capsule,lindsey yed release TAKE 1 CAPSULE BY MOUTH TWICE DAILY active Not Available Not Available No t Available acetaminophe n 500 mg tablet TAKE 2 TABLETS BY MOUTH THREE TIMES DAILY NEEDED FOR PAINALTERNA TE WITH IBUPROFEN active Not Available Not Available No t Available simvastatin 40 mg tablet TAKE 1 TABLET BY MOUTH DAILY AT BEDTIME active Not Available Not Available N ot Available acetaminophe n ER 650 mg tablet,exten ded release TAKE 1 TABLET BY MOUTH EVERY 8 HOURS NEEDED FOR MILD PAIN active Not Available Not Available No t Available Elton DigitalTouch Ultra Test strips USE DIRECTED TO TEST BLOOD GLUCOSE FOUR TIMES DAILY active Not Available Not Available No t Available lisinopril 10 mg tablet TAKE 1 TABLET BY MOUTH DAILY active Not Available Not Available Not Available omeprazole 20 mg capsule,lindsey yed release TAKE 1 CAPSULE BY MOUTH TWICE DAILY active Not Available Not Available No t Available bisacodyl 5 mg tablet,delay ed release TAKE 4 TABLETS BY MOUTH ONCE active Not Available Not Available N ot Available ibuprofen 600 mg tablet TAKE 1 TABLET BY MOUTH BACK THREE TIMES DAILY FOR 7 DAYS NEEDED FOR SHOULDER PAIN active Not Available Not Available No t Available SSD 1 % topical cream APPLY TOPICALLY TO THE AFFECTED AREA DAILY active Not Available Not Available N ot Available fluticasone propionate 50 mcg/actuatio n nasal spray,suspen barber SHAKE LIQUID AND USE 1 SPRAY IN EACH NOSTRIL TWICE DAILY active Not Available Not Available Not Available amoxicillin 500 mg-potassium clavulanate 125 mg tablet TAKE 1 TABLET BY MOUTH EVERY 12 HOURS FOR 14 DAYS DOSAGE EXPRESSED AMOXICILLIN active Not Available Not Available Not Available oxycodone 5 mg tablet TAKE 1 TABLET BY MOUTH EVERY 6 HOURS FOR 3 DAYS NEEDED FOR PAIN active Not Available Not Available No t Available bupropion HCl XL 300 mg 24 hr tablet, extended release TAKE 1 TABLET BY MOUTH EVERY 24 HOURS TOTAL 450 MG active Not Available Not Available No t Available bupropion HCl XL 150 mg 24 hr tablet, extended release TAKE 1 TABLET BY MOUTH EVERY 24 HOURS TOTAL 450 MG active Not Available Not Available No t Available methylphenid ate LA 20 mg biphasic 50-50 capsule,exte nded release TAKE 1 CAPSULE BY MOUTH DAILY IN THE MORNING FOR ADHD active Not Available Not Available No t Available methylphenid ate LA 30 mg biphasic 50-50 capsule,exte nded release TAKE 1 CAPSULE BY MOUTH DAILY IN THE MORNING FOR ADHD active Not Available Not Available No t Available duloxetine 30 mg capsule,lindsey yed release active Not Available Not Available Not Available duloxetine 60 mg capsule,lindsey yed release TAKE 1 CAPSULE BY MOUTH DAILY NEEDED active Not Available Not Available No t Available GaviLyte-G 236 gram-22.74 gram-6.74 gram-5.86 gram oral solution MIX AND DRINK DIRECTED active Not Available Not Available No t Available calcium 600 mg (as carbonate)-v itamin D3 20 mcg (800 unit) tablet TAKE 1 TABLET BY MOUTH EVERY DAY active Not Available Not Available No t Available Basaglar KwikPen U-100 Insulin 100 unit/mL (3 mL) subcutaneous INJECT 120 UNITS UNDER THE SKIN TWICE DAILY active Not Available Not Available Not Available OneTouch Delica Plus Lancet 30 gauge USE DIRECTED TO TEST BLOOD GLUCOSE FOUR TIMES DAILY active Not Available Not Available No t Available Vitals Date Recorded Body height Body mass index (BMI) Body weight Provider Name and Address Organization Details Last Updated DateTime 06/27/2023 157.48 cm 34.8 kg/m2 93953.55 g Jennifer Stephens [place] - [facility] 06/27/2023 13:28:00 Social History None recorded. Functional Status None recorded. Mental Status None recorded. Family History Nothing Reported. Medical History No medical history recorded. Gynecological HistoryNo gynecological history recorded. Obstetrics History GPAL:G 0 P 0 0 0 0 Past Encounters Encounter ID Performer Location Encounter Start Date Encounter Closed Date Diagnosis/Indication Diagnosis SNOMED-CT Code Diagnosis ICD10 Code Diagnosis Note [id number] Jena Perez MD [facility] [address] [place] [address] 06/27/2023 13:13:29 07/16/2023 12:10:45 Pain in left foot 8581016386 55344 M79.672 Charcot's joint of foot 431016253 M14.672 Health Concerns Section Related Observation LastModified by Organization Detai ls LastModified Time None Recorded Concern Status LastModified by Organization Details LastModified Time None Recorded Advance Directives Directive None Recorded Payers Encounter Date Sequence Insurance Name Policy Number Policy Lackey Covered Member ID Lackey Member ID Guarantor Name 06/27/2023 2 [place] Rosa Barney Jose [id number] Rosa A Jose 06/27/2023 1 [email or web address] - OPEN ACCESS PLUS [id number] Rosa Barney Jose Mejia [id number] Rosa A Jose Notes Date Note Type Note Provider Name and Address Organization Details Recorded Time 06/27/2023 text/html CHIEF COMPLAINT: Follow up Left foot Charcot neuroarthropathy HISTORY OF PRESENT ILLNESS: Rosa presents today for follow-up evaluation and preoperative planning. In brief she is a 54-year-old female, with medical history notable for poorly controlled diabetes with A1c over 10, who we have been managing conservatively for Charcot neuroarthropathy of the left foot, Luzma type 2. Her Meary's angle has been consistently noted to be substantially greater than 27 degrees, placing her at very high risk for ulceration. We do have a CT scan of the patient's left foot. CT scan has revealed collapse of the midfoot with fragmentation and some consolidation, consistent with Charcot neuroarthropathy. There is significant plantar prominence of both the lateral cuneiform as well as the cuboid. We have discussed moving forward with a minimally invasive plantar exostectomy. The patient has had recurrent ulcerations, callus formation, and blistering over her plantar bony prominence. She understands this may not definitively get her out of the Ho[place] boot, but it may mitigate some of her ulceration risk long-term. She is not a candidate for Charcot reconstruction construction at present given her extremely elevated A1c. Additionally, her ulceration risk may be nearly eliminated with a plantar exostectomy, which is why we are performing this as a surgical starting point Past family, medical, social history and review of systems has been reviewed, updated and is located in the patient's chart. PHYSICAL EXAM:Patient in no acute distress, alert and oriented. Mood and affect appropriateOn standing examination there is neutral alignment of the hindfoot on the left. There is a rocker bottom deformity. Plantar skin is intact with no evidence of full thickness breakdown. There is a plantar lateral callus now measuring 2 x 2cm. There is some discoloration of the overlying skin but no obvious evidence of deep soft tissue breakdown. There is serous fluid correction in the region of the callus, deep to the epidermis. There is some hemorrhagic tissue in this region as well. There is no purulent drainage. There is a large plantar bony prominence underlying the callusThere is an Achilles contracture presentHer hallux amputation site is well healedShe is diffusely decreased sensation in stocking-glove pattern consistent with peripheral neuropathyToes are warm and well perfused with palpable DP and PT pulses X-rays (previous imaging) AP and oblique weightbearing views of the ankle demonstrate no evidence of acute fracture or degenerative change. Tibiotalar mortise is symmetric with no talar tilt or talar shift. Weightbearing imaging of the left foot demonstrates fragmentation throughout the midfoot. There is collapse of the medial navicular with proximal and dorsal translation of the cuneiform and 1st metatarsal. There is dorsal dislocation of all lesser metatarsals on the cuneiforms and cuboid.. Rocker bottom deformity noted on lateral imaging. Meary's angle has been measured and is around -27 degreesCT scan: Pertinent findings as noted in HPI. For full details, please refer to radiology report IMPRESSION:- left foot Charcot neuroarthropathy, Luzma type 2, with Meary's angle greater than -27- History of diabetes and peripheral neuropathy PLAN:- I again reviewed today's physical examination and imaging findings at length with the patient. Clinically, she continues to have a very severe deformity and she has some radiographic parameters that are predictive of a nearly 100% risk for ulceration. Unfortunately, with an A1c likely over 10 I do not believe she is a candidate for open reconstructive surgery at present. We additionally discussed that with midfoot consolidation but prominent lateral column collapse, often a plantar exostectomy can achieve a plantigrade foot and a large open reconstructive surgery is often not necessary.- We again did discuss at length that the plan will be to forward with a minimally invasive plantar exostectomy combined with a FE versus gastroc recession. This may decompress the foot and decrease her ulceration risks substantially. Her midfoot does appear stable to stress testing and there is some consolidation on her CT.- current operative plan is for left foot plantar exostectomy (minimally invasive), with concurrent tendo Achilles lengthening versus gastroc recession.- Risks and benefits of operative intervention were discussed at length with patient in clinic today, including but not limited to: Bleeding, infection, damage to surrounding neurovascular structures, possibility of over or under correction of deformity, possibility of recurrence of deformity, possibility of nonunion, possibility of malunion, possibility of incomplete pain relief. Perioperative risks such as DVT and PE were discussed. Patient indicated they understood the risks and wished to proceed. Jena Perez MD [address] [place], [place] [address], [place], [address], [facility] - [facility] 06/27/2023 17:46:43 OBGyn Episode No OBEpisode recorded.
--- OUTSIDE RECORDS SUMMARY | 2024-05-18 15:31 | XMS_ITS | Encounter Summary ---
Author Organization [employer] Address [address] [place] [address] Care Team Providers Care Inhalation Therapy Aides Teacher Name Role Phone Cesar Bonner MD Primary Care Provider [phone] Reason for Referral * Consultation (Routine) - Authorized Specialty Diagnoses / Procedures Referred By Contac t Referred To Contact Behavioral Health Diagnoses Severe episode of recurrent major depressive disorder, without psychotic features ([facility]/HCC) Cesar Bonner MD [address] [place] [id number] Phone: tel: fax: Referral ID Status Reason Start Date Expiration Date Visits Requested Visits Authorized [id number] Authorized Specialty Services Required 05/14/2024 05/14/2025 1 1 Reason for Visit * Reason Comments Follow-up Chronic conditions Diabetes Encounter Details Date Type Department Care Team ([facility] st Contact Info) Description 05/14/2024 10:45 AM EST Office Visit [facility] MED & PEDS [address] [place] [address] Cesar Bonner MD [address] [place] [phone] Primary hypertension (Primary Dx); Type 2 diabetes mellitus with hyperglycemia, with long-term current use of insulin (CMS/HCC); Acute cough; Influenza B; Charcot foot due to diabetes mellitus (CMS/HCC); Severe episode of recurrent major depressive disorder, without psychotic features ([facility]/HCC) Social History Tobacco Use Types Packs/Day Years [...] AM EDT documented as of this encounter Last Filed Vital Signs Vital Sign Reading [...] Mass Index 30.22 05/14/2024 10:41 AM EST documented in this encounter Progress Notes * Cesar Bonner MD - 05/14/2024 10:45 AM EST Subjective Patient ID: Rosa Mejia is a 54 y.o. female who presents for Follow-up (Chronic conditions ) and Diabetes. HPI The left foot wound is still open but better. Still following up at the wound clinic. Has an appointment to get a new boot tomorrow to relieve pressure better. Patient with history of diabetes. She has received her Lantus and has started using it. She is on 60 units 2 times a day from her open shank coverer. Reports feeling very anxious about multiple family stressors. Currently receiving care from a psychiatrist but does not have a therapist. She is open to getting help from therapy Patient Active Problem List Diagnosis ADHD (attention deficit hyperactivity disorder), inattentive type Allergic rhinitis Charcot foot due to diabetes mellitus ([facility]/HCC) Constipation Current use of insulin ([facility]) ILYA (generalized anxiety disorder) GERD (gastroesophageal reflux disease) Hepatic steatosis Hyperglycemia due to diabetes mellitus ([facility]/HCC) History of artificial joint Hyperlipemia Hypertension Major depressive disorder, recurrent episode, severe ([facility]) Type 2 diabetes mellitus ([facility]) Current Outpatient Medications on File Prior to Visit Medication Sig Dispense Refill acetaminophen (Tylenol) 500 MG tablet TAKE 2 TABLETS BY MOUTH THREE TIMES DAILY NEEDED FOR PAINALTERNATE WITH IBUPROFEN albuterol 108 (90 Base) MCG/ACT inhaler Inhale 2 puffs every 4 (four) hours if needed for wheezing.18 g 0 bisacodyl (Dulcolax) 5 MG EC tablet TAKE 4 TABLETS BY MOUTH ONCE Blood Glucose Monitoring Suppl (ONE TOUCH ULTRA 2) w/Device kit USE DIRECTED TO TEST BLOOD SUGARFOUR TIMES A DAY buPROPion (Wellbutrin) 100 MG tablet Take 100 mg by mouth 2 times daily. buPROPion XL (Wellbutrin XL) 150 MG 24 hr tablet TAKE 1 TABLET BY MOUTH EVERY 24 HOURS TOTAL 450 MG buPROPion XL (Wellbutrin XL) 300 MG 24 hr tablet TAKE 1 TABLET BY MOUTH EVERY 24 HOURS TOTAL 450 MG Calcium Carb-Cholecalciferol 600-20 MG-MCG tablet Take 1 tablet by mouth Once per day. cetirizine (ZyrTEC) 10 MG tablet Take 1 tablet (10 mg) by mouth Once per day. 30 tablet 11 Continuous Glucose Sensor (FreeStyle Hina 3 Plus Sensor) [facility] Diclofenac Sodium 1 % gel To apply to the affected area 3 times a day 100 g 0 Droplet Pen [place] 31G X 5 MM [facility] USE DIRECTED FOUR TIMES DAILY DULoxetine (Cymbalta) [address] capsule DULoxetine (Cymbalta) [address] capsule Take 1 capsule (60 mg) by mouth Once per day. Do not crush or chew. 30 capsule 11 fluticasone (Flonase) 50 MCG/ACT nasal spray SHAKE LIQUID AND USE 1 SPRAY IN EACH NOSTRIL TWICE DAILY fluticasone (Flonase) 50 MCG/ACT nasal spray Administer 1-2 sprays into each nostril Once per day. Shake gently. Before first use, prime pump. After use, clean tip and replace cap. 16 g 11 glucagon 1 MG injection INJECT 1 MG SUBCUTANEOUSLY ONCE NEEDED DIRECTED glyBURIDE (Diabeta) 5 MG tablet Take 2 tablets by mouth 2 times daily. insulin lispro (HumaLOG Asim KwikPen) 100 UNIT/ML pen Inject 14 Units under the skin with breakfast, with lunch, and with evening meal. 5 mL 12 insulin lispro (HumaLOG KWIKPEN) 100 UNIT/ML injection Inject 14 Units under the skin with breakfast, with lunch, and with evening meal. 5 mL 11 Insulin Lispro (HumaLOG) 100 UNIT/ML solution Inject 14 Units under the skin 3 times daily. 4 to 14units to inject subcu 3 times a day 15 minutes before meal as per the sliding scale 20 mL 11 Lancets (OneTouch Delica Plus [id number]) [facility] USE DIRECTED TO TEST BLOOD SUGAR FOUR TIMES A DAY Lantus SoloStar 100 UNIT/ML pen Inject 60 Units under the skin 2 times daily. 3 mL 11 lisinopril 10 MG tablet Take 1 tablet (10 mg) by mouth Once per day. 90 tablet 3 loratadine (Claritin) 10 MG tablet Take 1 tablet (10 mg) by mouth Once per day. 30 tablet 11 omeprazole (PriLOSEC) [address] capsule Take 20 mg by mouth 2 times daily. OneTouch Ultra test strip USE DIRECTED TO TEST BLOOD SUGAR FOUR TIMES A DAY Ritalin LA 30 MG 24 hr capsule Take 30 mg by mouth. simvastatin (Zocor) 40 MG tablet Take 1 tablet (40 mg) by mouth at bedtime. 30 tablet 11 traZODone (Desyrel) 50 MG tablet Take 50 mg by mouth at bedtime. [DISCONTINUED] Lantus SoloStar 100 UNIT/ML pen ADMINISTER 60 UNITS UNDER THE SKIN TWICE DAILY No current facility-administered medications on file prior to visit. Allergies Allergen Reactions Clindamycin Edetic Acid Erythromycin Other reaction(s): Nausea/Vomiting Latex Other reaction(s): Rash Metformin Other reaction(s): Nausea / Vomiting Review of Systems Constitutional: Negative for activity change, appetite change and chills. Eyes: Negative for photophobia, pain and redness. Respiratory: Negative for cough and choking. Genitourinary: Negative for decreased urine volume and vaginal bleeding. Musculoskeletal: Left foot pain Objective Physical Exam Constitutional: General: She is not in acute distress. Appearance: Normal appearance. She is not ill-appearing, toxic-appearing or diaphoretic. Cardiovascular: Rate and Rhythm: Normal rate. Pulmonary: Effort: Pulmonary effort is normal. Neurological: General: No focal deficit present. Mental Status: She is alert. Psychiatric: Mood and Affect: Mood is depressed. Assessment/Plan Diagnoses and all orders for this visit: Primary hypertension Comments: Controlled No change. Type 2 diabetes mellitus with hyperglycemia, with long-term current use of insulin ([facility]) Comments: On 60 units of lantus 2 times a day Has recently resumed her insulin. Patient is to follow-up with endocrinology. If unable to resume her care with her open shank coverer we will refer to our clinical pharmacist [facility]. Low-carb diet recommended. Orders: - POCT A1C - POCT glucose manually resulted - Albumin, Random Urine W/Creatinine; Future - Comprehensive Metabolic Panel; Future - Lipid Panel, Standard; Future - TSH W/Reflex to FT4; Future - Hepatitis C Antibody with Reflex to HCV, RNA, Quantitative, Real-Time PCR; Future Acute cough Comments: resolved No acute intervention. Influenza B Comments: resolved. No acute intervention for now. Charcot foot due to diabetes mellitus (CMS/HCC) - lidocaine (Xylocaine) 5 % ointment; Apply topically if needed for mild pain. - Hepatitis C Antibody with Reflex to HCV, RNA, Quantitative, Real-Time PCR; Future Severe episode of recurrent major depressive disorder, without psychotic features (CMS/HCC) - Referral to Behavioral Health; Future documented in this encounter Plan of Treatment Upcoming Encounters Date Type Department Care Team (Late st Contact Info) Description 05/21/2024 10:15 AM EST Nurse Only [facility] MED & PED[facility] [address] [place] [address] 08/15/2024 9:00 AM EDT Office Visit [facility] [address] [place] [address] Cesar Bonner MD [address] [place] [address] Scheduled Orders Name Type Priority Associated Diagnoses Orde r Schedule Albumin, Random Urine W/Creatinine Lab Routine Type 2 diabetes mellitus with hyperglycemia, with long-term current use of insulin (CMS/HCC) Expected: 05/14/2024 (Approximate), Expires: 05/14/2025 Comprehensive Metabolic Panel Lab Routine Type 2 diabetes mellitus with hyperglycemia, with long-term current use of insulin (CMS/HCC) Expected: 05/14/2024 (Approximate), Expires: 05/14/2025 Lipid Panel, Standard Lab Routine Type 2 diabetes mellitus with hyperglycemia, with long-term current use of insulin (CMS/HCC) Expected: 05/14/2024 (Approximate), Expires: 05/14/2025 TSH W/Reflex to FT4 Lab Routine Type 2 diabetes mellitus with hyperglycemia, with long-term current use of insulin (CMS/HCC) Expected: 05/14/2024 (Approximate), Expires: 05/14/2025 Hepatitis C Antibody with Reflex to HCV, RNA, Quantitative, Real-Time PCR Lab Routine Type 2 diabetes mellitus with hyperglycemia, with long-term current use of insulin (CMS/HCC) Charcot foot due to diabetes mellitus ([facility]) Expected: 05/14/2024, Expires: 05/14/2025 Scheduled Referrals Name Type Priority Associated Diagnoses Order Schedule Referral to Behavioral Health Outpatient Referral Routine Severe episode of recurrent major depressive disorder, without psychotic features ([facility]) Expected: 05/14/2024 (Approximate), Expires: 05/14/2025 documented as of this encounter Procedures Procedure Name Priority Date/Time Associated Diagnosis Comments POCT GLYCATED HEMOGLOBIN, TOTAL Routine 05/14/2024 10:44 AM EST Type 2 diabetes mellitus with hyperglycemia, with long-term current use of insulin ([facility]) POCT GLUCOSE Routine 05/14/2024 10:43 AM EST Type 2 diabetes mellitus with hyperglycemia, with long-term current use of insulin ([facility]) documented in this encounter Results * (ABNORMAL) POCT A1C (05/14/2024 10:44 AM EST) Hemoglobin A1C 13.4(A) 4.0 - 6.0 % QC Media Lot # Comment:[id number] Lot# Expiration Date Comment:01/05/2026 Blood 05/14/2024 10:4 4 AM EST Cesar Bonner MD POINT OF CARE TEST ENTER/ED IT ORDERABLES Final Result * (ABNORMAL) POCT glucose manually resulted (05/14/2024 10:43 AM EST) Glucose Blood, POC 429(A) 60 - 200 mg/dL QC Media Lot # Comment:[id number] Lot# Expiration Date Comment:06/26/2024 Blood Capillary blood specimen / Unknown 05/14/2024 10:43 AM EST Cesar Bonner MD POINT OF CARE TEST ENTER/ED IT ORDERABLES Final Result documented in this encounter Visit Diagnoses Diagnosis Primary hypertension- Primary Unspecified essential hypertension Type 2 diabetes mellitus with hyperglycemia, with long-term current use of insulin ([facility]) Acute cough Influenza B Influenza with other respiratory manifestations Charcot foot due to diabetes mellitus (CMS/HCC) Severe episode of recurrent major depressive disorder, without psychotic features (CMS/HCC) documented in this encounter Additional Health Concerns Assessment Noted Time PHQ-9 Depression Total Score: 25 025 10:52 AM EST documented as of this encounter Care Teams Inhalation Therapy Aides Teacher Relationship Specialty Start Date End Date Cesar Bonner MD [address] [place] [address] PCP - General Internal Medicine 11/08/23 documented as of this encounter
--- OUTSIDE RECORDS SUMMARY | 2024-05-18 15:31 | XMS_ITS | Encounter Summary ---
Author Organization [employer] Address [address] [place] [address] Care Team Providers Care Termite Exterminator Name Role Phone Cesar Bonner MD Primary Care Provider [phone] Reason for Referral * Consultation (Routine) - Authorized Specialty Diagnoses / Procedures Referred By Contac t Referred To Contact Pharmacy Diagnoses Hyperglycemia due to diabetes mellitus (CMS/HCC) Cesar Bonner MD [address] [place] [address] Phone: tel: fax: Referral ID Status Reason Start Date Expiration Date Visits Requested Visits Authorized [id number] Authorized Consult and Treat 04/20/2024 04/20/2025 6 6 Encounter Details Date Type Department Care Team ([facility] st Contact Info) Description 04/20/2024 Orders Only [facility] MED & PEDS [address] [facility] [place] [address] Cesar Bonner MD [address] [place] [address] Hyperglycemia due to diabetes mellitus (CMS/HCC) (Primary Dx) Social History Tobacco Use Types Packs/Day Years Used Date Smoking Tobacco: Never Smokeless Tobacco: Never Housing Stability Answer Date Recorded What is your housing situation today? I have jose m wiggins 10/31/[address] you [...] Upcoming Encounters Date Type Department Care Team ([facility] Contact Info) Description 05/21/2024 10:15 AM EST Nurse Only [facility] MED & PEDS [address] [place] [address] 08/15/2024 9:00 AM EDT Office Visit [facility] MED & PEDS [address] [place] [address] Cesar Bonner MD [address] [place] [address] Scheduled Referrals Name Type Priority Associated Diagnoses Orde r Schedule Referral to Pharmacy CDTM Outpatient Referral Routine Hyperglycemia due to diabetes mellitus (CMS/HCC) Ordered: 04/20/2024 documented as of this encounter Visit Diagnoses Diagnosis Hyperglycemia due to diabetes mellitus (CMS/HCC)- Primary documented in this encounter Care Teams Termite Exterminator Relationship Specialty Start Date End Date Cesar Bonner MD [address] [place] [address] PCP - General Internal Medicine 11/08/23 documented as of this encounter
--- OUTSIDE RECORDS SUMMARY | 2024-05-18 15:31 | XMS_ITS | Encounter Summary ---
Author Organization [employer] Address [address] [place] [address] 7 [place] [address] Care Team Providers Care Policy Change Clerks Supervisor Name Role Phone Cesar Bonner MD Primary Care Provider [phone] Encounter Details Date Type Department Care Team ([facility] st Contact Info) Description 05/09/2024 Orders Only [facility] CH[facility] MED & PEDS [address] [place], [place] [phone] Cesar Bonner MD [address] [place] [address] Type 2 diabetes mellitus with hyperglycemia, with long-term current use of insulin ([facility]) (Primary Dx) Social History Tobacco Use Types [...] 10:15 AM EST Nurse Only [facility] MED & PEDS [address] [place] [address] 08/15/2024 9:00 AM EDT Office Visit [facility] MED & PEDS [address] [place] [address] Cesar Bonner MD [address] [place] [address] documented as of this encounter Visit Diagnoses Diagnosis Type 2 diabetes mellitus with hyperglycemia, with long-term current use of insulin ([facility])- Primary documented in this encounter Care Teams Policy Change Clerks Supervisor Relationship Specialty Start Date End Date Cesar Bonner MD [address] [place] [address] PCP - General Internal Medicine 11/08/23 documented as of this encounter
--- OUTSIDE RECORDS SUMMARY | 2024-05-18 15:31 | XMS_ITS | Encounter Summary ---
Author Organization [employer] Address [address] [place] [address] 7 [place] [address] Care Team Providers Care Turf And Grounds Supervisor Name Role Phone Cesar Bonner MD Primary Care Provider [phone] Reason for Visit * Reason Onset Date Comments Medication Question 12/01/2023 Encounter Details Date Type Department Care Team ([facility] st Contact Info) Description 12/01/2023 Telephone [facility] MED & PEDS [address] [place] [address] Cesar Bonner MD [address] [place], [place] [id number] Medication Question Social History Tobacco Use Types Packs/Day Years [...] encounter Miscellaneous Notes * Telephone Encounter - Keesha Caldera RN - 12/01/2023 4:11 PM EDT Telephone call to [place] , pharmacist at the [facility]'s pharmacy . Augusta stated that the pt does not have syringes at home for the insulin . States she would need a prescription for the quick pen , or a prescription for the insulin syringes . Will route this message to Dr Reji Bonner for review , and to reply to the [facility] nurses . TY. * Telephone Encounter - Janette Felix - 12/01/2023 11:23 AM EDT Tc roula [place] with [facility] pharmacy requesting a call back to clarify medication Insulin Lispro (HumaLOG) 100 UNIT/ML solution . documented in this encounter Plan of Treatment Upcoming Encounters Date Type Department Care Team (Late st Contact Info) Description 05/21/2024 10:15 AM EST Nurse Only [facility] MED & PEDS [address] [place] [address] 08/15/2024 9:00 AM EDT Office Visit [facility] MED [facility] PEDS [address] [place] [address] Cesar Bonner MD [address] [place] [address] documented as of this encounter Visit Diagnoses Not on filedocumented in this encounter Care Teams Turf And Grounds Supervisor Relationship Specialty Start Date End Date Cesar Bonner MD [address] [place] [address] PCP - General Internal Medicine 11/08/23 documented as of this encounter
--- OUTSIDE RECORDS SUMMARY | 2024-05-18 15:31 | XMS_ITS | Encounter Summary ---
Author Organization [employer] Address [address] [facility] [address] [place] [address] Care Team Providers Care Sort Operations Supervisor Name Role Phone Cesar Bonner MD Primary Care Provider [phone] Encounter Details Date Type Department Care Team (Latest Contact Info) Description 05/14/2024 Travel Social History Tobacco Use Types Packs/Day [...] Description 05/21/2024 10:15 AM EST Nurse Only [facility] MED [facility] PED[facility] [address] [place] [address] 08/15/2024 9:00 AM EDT Office Visit [facility] MED [facility] PED[facility] [address] [place] [address] Cesar Bonner MD [address] [place] [address] documented as of this encounter Visit Diagnoses Not on filedocumented in this encounter Additional Health Concerns Assessment Noted Time PHQ-9 Depression Total Score: 25 025 10:52 AM EST documented as of this encounter Care Teams Sort Operations Supervisor Relationship Specialty Start Date End Date Cesar Bonner MD [address] [place] [address] PCP - General Internal Medicine 11/08/23 documented as of this encounter
--- OUTSIDE RECORDS SUMMARY | 2024-05-18 15:31 | XMS_ITS | Encounter Summary ---
Author Organization [employer] Address [address] [facility] [address]t [place] [address] Care Team Providers Care Custodial Aide Name Role Phone Cesar Bonner MD Primary Care Provider [phone] Reason for Visit * Reason Onset Date Comments Med Refill 05/09/2024 Lantus Solostar Encounter Details Date Type Department Care Team (Late st Contact Info) Description 05/09/2024 Telephone [facility] MED & PEDS [address] [place] [address] Keena Skaggs, ALIX Med Refill (Lantus Solostar) Social History Tobacco Use Types Packs/Day Years [...] Telephone Encounter - Keena Skaggs RN - 05/09/2024 9:21 AM EST Patient called requesting Lantus Solostar. Patient states she is completely out of long acting insulin. She states that she used to get insulin from histologist technologist, but they no longer have her as a patient. Routing to provider for review and recommendations. Is this a medication you are willing toprescribe since she does not have histologist technologist anymore? documented in this encounter Plan of Treatment Upcoming Encounters Date Type Department Care Team (Late st Contact Info) Description 05/21/2024 10:15 AM EST Nurse Only [facility] [address] [place] [address] 08/15/2024 9:00 AM EDT Office Visit [facility] [address] [place] [address] Cesar Bonner MD [address] [place] [address] documented as of this encounter Visit Diagnoses Not on filedocumented in this encounter Care Teams Custodial Aide Relationship Specialty Start Date End Date Cesar Bonner MD [address] [place] [address] PCP - General Internal Medicine 11/08/23 documented as of this encounter
--- OUTSIDE RECORDS SUMMARY | 2024-05-18 15:31 | XMS_ITS | Encounter Summary ---
Author Organization [email or web address] Address [address] [facility] 7t [place] [address] Care Team Providers Care Meat Cutter Apprentice Name Role Phone Cesar Bonner MD Primary Care Provider [phone] Encounter Details Date Type Department Care Team (Late st Contact Info) Description 04/20/2024 Telephone [facility] MED & PEDS [address] [place], [place] [phone] Emmanuelle Belcher, PharmD [address] [place] [address] Social History Tobacco Use Types Packs/Day Years [...] encounter Miscellaneous Notes * Telephone Encounter - Emmanuelle Belcher PharmD - 04/20/2024 12:06 PM EST Hello, this patient has an A1c > 10% and would benefit from the pharmacy CDTM program if no longer seeing endo. Please send a referral for CDTM - Diabetes E11.65. Thank you! documented in this encounter Plan of Treatment Upcoming Encounters Date Type Department Care Team (Late st Contact Info) Description 05/21/2024 10:15 AM EST Nurse Only [facility] MED & PEDS [address] [place] [address] 08/15/2024 9:00 AM EDT Office Visit [facility] MED [facility] PED[facility] [address] [place] [address] Cesar Bonner MD [address] [place] [address] documented as of this encounter Visit Diagnoses Not on filedocumented in this encounter Care Teams Meat Cutter Apprentice Relationship Specialty Start Date End Date Cesar Bonner MD [address] [place] [address] PCP - General Internal Medicine 11/08/23 documented as of this encounter
--- OUTSIDE RECORDS SUMMARY | 2024-05-18 15:31 | XMS_ITS | Encounter Summary ---
Author Organization [employer] Address [address] [place] [address] 7 [place] [address] Care Team Providers Care Early Childhood Teacher Assistant Name Role Phone Cesar Bonner MD Primary Care Provider [phone] Encounter Details Date Type Department Care Team (Late st Contact Info) Description 11/25/2023 Orders Only [facility] MED & PEDS [address] [place], [place] [phone] Cesar Bonner MD [address] [place] [address] Type 2 diabetes mellitus with hyperglycemia, with long-term current use of insulin ([facility]) (Primary Dx) Social History Tobacco Use Types [...] [facility] [address] [place] [address] 08/15/2024 9:00 AM EDT Office Visit [facility] [address] [place] [address] Cesar Bonner MD [address] [place] [address] documented as of this encounter Visit Diagnoses Diagnosis Type 2 diabetes mellitus with hyperglycemia, with long-term current use of insulin ([facility])- Primary documented in this encounter Care Teams Early Childhood Teacher Assistant Relationship Specialty Start Date End Date Cesar Bonner MD [address] [place] [address] PCP - General Internal Medicine 11/08/23 documented as of this encounter
--- OUTSIDE RECORDS SUMMARY | 2024-05-18 15:32 | XMS_ITS | Encounter Summary ---
Author Organization [employer] Address [address] [place] [address] 7t [place] [address] Care Team Providers Care Concrete Boom Pump Operator Name Role Phone Cesar Bonner MD Primary Care Provider [phone] [phone] Encounter Details Date Type Department Care Team (Late st Contact Info) Description 01/09/2024 Orders Only [facility] [address] [place] [address] Provider, MD Daniel Social History Tobacco Use Types Packs/Day Years [...] [facility] [address] [place] [address] 08/15/2024 9:00 AM EDT Office Visit [facility] [address] [place] [address] Cesar Bonner MD [address] [place] [address] documented as of this encounter Procedures Procedure Name Priority Date/Time Associated Diagnosis Comments SURGICAL PATHOLOGY Routine 10/25/2022 2:32 PM EDT documented in this encounter Results * Surgical Pathology (10/25/2022 2:32 PM EDT) us Historical Provider LAB PATHOLOGY ORDERABLES Final Result documented in this encounter Visit Diagnoses Not on filedocumented in this encounter Care Teams Concrete Boom Pump Operator Relationship Specialty Start Date End Date Cesar Bonner MD [address] [place] [address] PCP - General Internal Medicine 11/08/23 documented as of this encounter
--- OUTSIDE RECORDS SUMMARY | 2024-05-18 15:32 | XMS_ITS | Encounter Summary ---
Author Organization [employer] Address [address] [facility] 7 [place] [address] Care Team Providers Care Auto Job Estimator Name Role Phone Cesar Bonner MD Primary Care Provider [phone]- [phone] Reason for Visit * Reason Onset Date Comments Med Refill 04/03/2024 Encounter Details Date Type Department Care Team (Late st Contact Info) Description 04/03/2024 Refill [facility] [address] [place] [address] Cesar Bonner MD [address] [facility] [address] [place] [id number] Charcot foot due to diabetes mellitus (CMS/HCC) (Primary Dx) [...] encounter Miscellaneous Notes * Telephone Encounter - Yajaira Hernandez - 04/03/2024 4:05 PM EST TC from pt requesting medication refill. Medications needing refill : traMADol (Ultram) 50 MG tablet To be sent to: [id number] - [address] documented in this encounter Plan of Treatment Upcoming Encounters Date Type Department Care Team ([facility] st Contact Info) Description 05/21/2024 10:15 AM EST Nurse Only [facility] [address] [place] [address] 08/15/2024 9:00 AM EDT Office Visit [facility] [address] [place] [address] Cesar Bonner MD [address] [place] [address] documented as of this encounter Visit Diagnoses Diagnosis Charcot foot due to diabetes mellitus (CMS/HCC)- Primary documented in this encounter Care Teams Auto Job Estimator Relationship Specialty Start Date End Date Cesar Bonner MD [address] [place] [address] PCP - General Internal Medicine 11/08/23 documented as of this encounter
--- OUTSIDE RECORDS SUMMARY | 2024-05-18 15:32 | XMS_ITS | Encounter Summary ---
Author Organization [employer] Address [address] [place] [address] [place] [address] Care Team Providers Care Pearl Hand Name Role Phone Cesar Bonner MD Primary Care Provider [phone] [phone] Encounter Details Date Type Department Care Team (Late st Contact Info) Description 04/04/2024 Orders Only [facility] [address] [place], [place] [phone] Cesar Bonner MD [address] [place] [address] Social History Tobacco Use Types Packs/Day Years [...] 05/21/2024 10:15 AM EST Nurse Only [facility] [address] [place] [address] 08/15/2024 9:00 AM EDT Office Visit [facility] [address] [place] [address] Cesar Bonner MD [address] [place] [address] documented as of this encounter Visit Diagnoses Not on filedocumented in this encounter Care Teams Pearl Hand Relationship Specialty Start Date End Date Cesar Bonner MD [address] [place] [address] PCP - General Internal Medicine 11/08/23 documented as of this encounter
--- OUTSIDE RECORDS SUMMARY | 2024-05-18 15:32 | XMS_ITS | Encounter Summary ---
Author Organization [employer] Address [address] [facility] 7 [place] [address] Care Team Providers Care School Cafeteria Head Cook Name Role Phone Cesar Bonner MD Primary Care Provider +[phone]- [phone] Reason for Visit * Reason Onset Date Comments Created in error 12/16/2023 Encounter Details Date Type Department Care Team ([facility] st Contact Info) Description 12/16/2023 Telephone [facility] [address] [place] [address] Cesar Bonner MD [address] [facility] [address] [place] [phone] Created in error Social History Tobacco Use Types Packs/Day Years [...] 10:15 AM EST Nurse Only [facility] [address] [place] [address] 08/15/2024 9:00 AM EDT Office Visit [facility] [address] [place] [address] Cesar Bonner MD [address] [place] [address] documented as of this encounter Visit Diagnoses Not on filedocumented in this encounter Care Teams School Cafeteria Head Cook Relationship Specialty Start Date End Date Cesar Bonner MD [address] [place] [address] PCP - General Internal Medicine 11/08/23 documented as of this encounter
--- OUTSIDE RECORDS SUMMARY | 2024-05-18 15:32 | XMS_ITS | Encounter Summary ---
Author Organization [email or web address] Address [address] [place] [address] [place] [address] Care Team Providers Care Backup Sawyer Name Role Phone Cesar Bonner MD Primary Care Provider [phone] Encounter Details Date Type Department Care Team ([facility] st Contact Info) Description 01/09/2024 Orders Only [facility] [address] [place], [place] [phone] Cesar Bonner MD [address] [place] [address] Social History Tobacco Use Types Packs/Day Years [...] Only [facility] [address] [place] [address] 08/15/2024 9:00 AM EDT Office Visit [facility] [address] [place] [address] Cesar Bonner MD [address] [place] [address] documented as of this encounter Visit Diagnoses Not on filedocumented in this encounter Care Teams Backup Sawyer Relationship Specialty Start Date End Date Cesar Bonner MD [address] [place] [address] PCP - General Internal Medicine 11/08/23 documented as of this encounter
--- OUTSIDE RECORDS SUMMARY | 2024-05-18 15:32 | XMS_ITS | Encounter Summary ---
Author Organization [employer] Address [address] [facility] 7t [place] [address] Care Team Providers Care Resident Care Supervisor Name Role Phone Cesar Bonner MD Primary Care Provider [phone] [phone] Encounter Details Date Type Department Care Team (Late st Contact Info) Description 04/16/2024 Orders Only [facility] [address] [place] [address] Provider, MD Daniel Social History Tobacco Use [...] Nurse Only [facility] [address] [place] [address] 08/15/2024 9:00 AM EDT Office Visit [facility] [address] [place] [address] Cesar Bonner MD [address] [place] [address] documented as of this encounter Procedures Procedure Name Priority Date/Time Associated Diagnosis Comments HM PAP/HPV Routine 01/05/2023 2:04 PM EDT documented in this encounter Results * HM PAP/HPV (01/05/2023 2:04 PM EDT) us Historical Provider HEALTH MAINTENANCE Final Result documented in this encounter Visit Diagnoses Not on filedocumented in this encounter Care Teams Resident Care Supervisor Relationship Specialty Start Date End Date Cesar Bonner MD [address] [place] [address] PCP - General Internal Medicine 11/08/23 documented as of this encounter
--- OUTSIDE RECORDS SUMMARY | 2024-05-18 15:32 | XMS_ITS | Encounter Summary ---
Author Organization [employer] Address [address] [place] [address] 7t [place] [address] Care Team Providers Care Sports Centre Manager Name Role Phone Cesar Bonner MD Primary Care Provider +1 [phone] Encounter Details Date Type Department Care Team (Late st Contact Info) Description 01/03/2024 Orders Only [facility] [address] [place] [address] Provider, MD Daniel Social History Tobacco Use [...] Description 05/21/2024 10:15 AM EST Nurse Only [facility] [address] [place] [address] 08/15/2024 9:00 AM EDT Office Visit [facility] [address] [place] [address] Cesar Bonner MD [address] [place] [address] documented as of this encounter Procedures Procedure Name Priority Date/Time Associated Diagnosis Comments COLONOSCOPY Routine 10/20/2022 9:35 AM EDT HM COLONOSCOPY Routine 10/20/2022 9:00 AM EDT documented in this encounter Results * Colonoscopy (10/20/2022 9:35 AM EDT) Anatomical Region Laterality Modality Endoscopy us Historical Provider ENDOSCOPY PROCEDURE ORDER YIMI Final Result * Hm Colonoscopy (10/20/2022 9:00 AM EDT) us Historical Provider HEALTH MAINTENANCE Final Result documented in this encounter Visit Diagnoses Not on filedocumented in this encounter Care Teams Sports Centre Manager Relationship Specialty Start Date End Date Cesar Bonner MD [address] [facility] [place] [address] PCP - General Internal Medicine 11/08/23 documented as of this encounter
[2024-05-18 18:51] LABS: Alanine Aminotransferase 41 U/L (0-31); Albumin Level 3.6 g/dL (3.5-5.0); Alkaline Phosphatase 123 U/L (39-117); Anion Gap 14 (12-20); Aspartate Amino Transferase 34 U/L (5-31); Bilirubin Total 0.4 mg/dL (0.0-1.0); Blood Urea Nitrogen 15 mg/dL (9-16); Calcium 9.4 mg/dL (8.4-10.2); Carbon Dioxide 24 mmol/L (22-29); Chloride 97 mmol/L (96-108); Cholesterol 171 mg/dL (<200); Estimated Glomerular Filt Rate 54; HDL Cholesterol 67 mg/dL (>40); LDL Cholesterol Calculated 73 mg/dL (<100); Potassium 5.2 mmol/L (3.3-5.1); Sodium 130 mmol/L (135-145); Total Protein 7.5 g/dL (6.5-8.0); Triglycerides 159 mg/dL (<150)
[2024-05-18 18:52] LABS: Glucose Random 656 mg/dL (60-115)
[2024-05-18 18:55] LABS: TSH reflex Free T4 0.41 uIU/mL (0.32-4.0)
[2024-05-21 08:53] LABS: ~HepC Num1 0.15 S/CO (0.00-0.79); ~Hepatitis C Antibody Nonreactive (Nonreactive)
== END 2024-05-18 13:26 | disposition home or self-care (01) ==
LOC: HO.CHCLDS 13:25
PROVIDERS: Visit Provider Internal Medicine
DX: E11.65 Type 2 diabetes mellitus with hyperglycemia (principal); Z79.4 Long term (current) use of insulin
CPT/HCPCS: 36415; 80053; 80061; 82043; 82570; 84443; 86803